=== PATIENT | female | born 1960 | race Caucasian/White ===

== ENCOUNTER 2019-04-02 12:19 | Inpatient (IN) ==
[2019-04-02] MEDS ORDERED: NS 1,000 ML IV ONE (13:27)
[2019-04-02] MEDS ORDERED: CATAPRES PO ONE (13:31)
[2019-04-02 13:55] LABS: BASO# 0.01 X1000 (0.0-0.2); BASO% 0.1 % (0.0-0.8); EOS# 0.03 X1000 (0.0-0.7); EOS% 0.3 % (0.0-10.0); HEMATOCRIT 41.1 % (37.0-47.0); HEMOGLOBIN 14.4 g/dL (12.0-16.0); IMM GRAN# 0.02 X1000 (0.0-0.04); IMM GRAN% 0.2 % (0.0-0.5); LYMPH# 1.75 X1000 (1.2-3.4); LYMPH% 17.7 % (20.5-51.1); MCH 33.3 PG (27-31); MCV 94.9 FL (81-99); MONO# 0.89 X1000 (0.11-0.59); MPV 10.4 FL (7.4-10.4); NEUT# 7.17 X1000 (1.4-6.5); NEUT% 72.7 % (42.2-75.2); PLT 236 X1000 (130-400); RBC 4.33 XMIL (4.2-5.4); WBC 9.87 X1000 (4.8-10.8)
[2019-04-02 14:14] LABS: AGAP 13; ALBUMIN 3.6 g/dL (3.5-5.0); ALKALINE PHOSPHATASE 67 U/L (32-104); BUN 9 mg/dL (8-22); CALCIUM 8.4 mg/dL (8.8-10.2); CHLORIDE 98 mmol/L (98-107); COSMO 280; CREATININE 0.5 mg/dL (0.5-0.9); ESTIMATED GFR > 60; GLUCOSE 160 mg/dL (70-104); GOT 14 U/L (10-30); GPT 6 U/L (10-36); LIPASE 20 U/L (13-60); POTASSIUM 3.5 mmol/L (3.5-5.1); SODIUM 139 mmol/L (136-145); TCO2 28 mmol/L (25-35); TOTAL PROTEIN 8.1 g/dL (6.3-8.3)
[2019-04-02 15:04] LABS: BILIRUBIN URINE NEGATIVE (NEGATIVE); BLOOD URINE NEGATIVE (NEGATIVE); GLUCOSE URINE NEGATIVE (NEGATIVE); KETONE URINE 3+(Large) mg/dL (NEGATIVE); LEUKOCYTES URINE TRACE (NEGATIVE); NITRITE URINE NEGATIVE (NEGATIVE); PROTEIN URINE 1+(30 mg/dL) mg/dL (NEGATIVE); SP GRAVITY URINE 1.005; UROBILINOGEN URINE 4 mg/dL
[2019-04-02 15:06] LABS: CLARITY CLEAR (CLEAR); COLOR DARK YELLOW; URINE SOURCE CLEAN CATCH
[2019-04-02 15:18] LABS: URINE RBC <10 /HPF (<10); URINE WBC <10 /HPF (<10)
[2019-04-02 15:19] LABS: URINE BACTERIA 1+ /HFP; URINE CAST NONE SEEN /LPF; URINE CRYSTAL NONE SEEN /HPF; URINE YEAST NONE SEEN /HPF
[2019-04-02 15:20] LABS: URINE EPITHELIAL CELLS >10 /HPF (<10)
--- NOTE | 2019-04-02 15:50 | Diag Imaging Result Doc PS360 ---
EXAM: CT ABD/PELVIS W/PO AND IV CON - 04/02/2019 HISTORY: BOWEL OBSTRUCT TECHNIQUE: CT abdomen/pelvis with oral and intravenous contrast COMPARISON: None. FINDINGS: The colon is tortuous. There is an apparent constricting lesion or stricture at the sigmoid colon which extends for a length of 4 to 5 cm, allowing for tortuosity. There is enhancement of the sigmoid colon chowdary of this location. There is irregularity of the external margins of the chowdary and there are some infiltration of surrounding fat. While this could possibly represent a benign stricture, this is somewhat suspicious for malignancy. There is diffuse distention of the colon with air and some fluid in proximal to the sigmoid lesion. There is mild loss thickening and centimeters of the distended colon. There is apparent pneumatosis at the cecum. This is nonspecific for, but can be seen with ischemia. The cecum measures approximately 6.5 cm in transverse diameter. There is no free air or abscess identified. There is no evidence of small bowel obstruction. There is no substantial abnormalities of the liver, spleen, adrenal glands, or pancreas identified. There are no calcified gallstones or pericholecystic inflammation identified. The bilateral kidneys enhance homogeneously except for a subtle small low-density area at the posterior upper left kidney, possibly representing cortical scar. There is no hydronephrosis. There are no substantial enlarged lymph nodes identified. There are atherosclerotic calcifications noted. IMPRESSION: Constricting lesion at sigmoid colon. This is suspicious for malignancy. The colon proximal to the sigmoid lesion is diffusely distended, consistent with obstruction by the lesion. There is mild wall thickening at portions of the distended colon. There is pneumatosis at the cecum. This is nonspecific for, but can be seen with ischemia. The cecum measures approximately 6.5 cm in transverse diameter. This report was discussed with Dr. Cuevas on 04/02/2019 at 3:46 PM and was readback. This exam was performed using automated exposure control, adjustment of mA or kV according to patient size, and/or use of iterative reconstruction technique. Electronically signed by Nuno Juarez 04/02/2019 3:48 PM
--- NOTE | 2019-04-02 16:34 | PROVIDER DOCUMENTATION ---
This chart was entered by Angela Draper Scribe, acting as scribe for Yuri Cuevas MD. HPI-Abdominal Pain/GI Problem - General Chief Complaint: Abdominal Pain Stated Complaint: REF URGENT CARE Time Seen by Provider: 04/02/19 13:10 Source: patient Allergies/Adverse Reactions: Patient Allergies Allergy/AdvReac Type Severity Reaction Status Date / Time erythromycin base Allergy ITCHING Verified 04/02/19 13:17 Penicillins Allergy ANAPHYLAXIS Verified 04/02/19 13:17 Sulfa (Sulfonamide Allergy ITCHING Verified 04/02/19 13:17 Antibiotics) Home Medications: Home Medication List Medication Instructions Recorded Confirmed Last Taken Type Lisinopril 20 mg PO DAILY 04/02/19 04/02/19 Unknown History - History of Present Illness-ABD Nature of Presenting Problems: Patient is a 58 year old female who presents with generalized abdominal pain, nausea, vomiting and constipation that has been present for 3 days. States seeing PCP today and was informed her xray showed a blockage. Report fever this morning. Abdominal Pain Onset Location: reports: generalized abdomen Pain Radiation: reports: no radiation Quality of Pain: reports: aching Severity in ED: reports: mild Onset/Duration: reports: 2 days ago Timing: reports: still present Activities at Onset: reports: light activity Modifying Factors: improves with: nothing Associated Symptoms: reports: constipation, fever/chills (fever), nausea, vomiting Last BM: 3 days ago Bruising or Bleeding Gums?: No Similar Symptoms Previously?: Yes Recently seen or treated by another doctor?: Yes Review of Systems - Adult - REVIEW OF SYSTEMS - ADULT Constitutional: reports: see HPI, fever. denies: chills, fatique Eyes: reports: no symptoms reported Ears, Nose, Mouth & Throat: reports: no symptoms reported Cardiovascular: reports: no symptoms reported Respiratory: reports: no symptoms reported Gastrointestinal: reports: see HPI, abdominal pain (generalized), constipation, nausea, vomiting Genitourinary: reports: no symptoms reported Musculoskeletal: reports: no symptoms reported. denies: back pain, muscle aches, neck pain Integumentary: reports: no symptoms reported Neurological: reports: no symptoms reported Psychiatric: reports: no symptoms reported Endocrine: reports: no symptoms reported Hematologic/Lymphatic: reports: no symptoms reported Allergic/Immunologic: reports: no symptoms reported All Other Systems: Reviewed and Negative Past History - Adult - PAST MEDICAL HISTORY-ADULT Review of Records: reports: Nursing Assessment Review, Medications Reviewed, Social history reviewed & non-contributory. Major Childhood Illnesses: reports: denies history Cardiovascular: reports: HTN Respiratory: reports: denies history Gastrointestinal: reports: denies history Obstetrical/Gynecological: reports: denies history Genitourinary: reports: denies history Musculoskeletal: reports: denies history Neurological: reports: denies history Endocrine/Immune: reports: denies history Other Conditions: reports: denies history - PRIOR SURGERIES/PROCEDURES Surgical/Procedure History: reports: - IMMUNIZATION STATUS Childhood Immunizations: See Nurse Assessment Flu Vaccine: See Nurse Assessment - FAMILY HISTORY Family History: reviewed, not pertinent - SOCIAL HISTORY Smoking: cigarettes, less than 1 pack/day Provider spent 3-5 mins advising pt. on dangers of tobacco.: Discussed manners to quit use, and f/u contacts for add'l counseling. Substance Use: denies Living Situation: family Physical Exam-General - PHYSICAL EXAM-ADULT Initial Vital Signs Reviewed: Yes - CONSTITUTIONAL General Appearance: alert, no apparent distress. negative: lethargic, slow to respond - RESPIRATORY Respiratory: chest non-tender, lungs clear, normal breath sounds. negative: rales, wheezing - CARDIOVASCULAR Cardiovascular: normal peripheral pulses, regular rate, rhythm. negative: bradycardia, systolic murmur - GASTROINTESTINAL (ABDOMEN) Abdominal Exam: normal bowel sounds, soft, distended, tenderness (diffuse). negative: guarding, rigid - MUSCULOSKELETAL Extremity: non-tender, normal inspection. negative: deformity - SKIN Integumentary: normal color, normal turgor, warm/dry. negative: diaphoresis, ecchymosis, jaundice - NEUROLOGIC Neurologic: grossly normal. negative: aphasia, facial droop - PSYCHIATRIC Psych/Mental Status: normal mood/affect, oriented x 3. negative: anxious Progress - PLAN OF CARE/RESULTS Progress/Plan/Lab Results: Vital Signs - 8 hr 04/02/19 12:29 Temperature 98.6 F Pulse Rate 92 H Respiratory Rate 18 Blood Pressure 181/121 O2 Sat by Pulse Oximetry 96 Orders Category Date Time Status Saline Loc NOW Care 04/02/19 13:[address] ABD/PELVIS W/PO AND IV CON [CT] Stat Exams 04/02/19 13:27 Ordered BLOOD CULTURE [BLDCUL] Stat Lab 04/02/19 13:26 Ordered CBC WITH ELECTRONIC DIFF [HEME] Stat Lab 04/02/19 13:26 Uncollected COMPREHENSIVE METABOLIC PANEL [CHEM] Stat Lab 04/02/19 13:26 Uncollected LACTATE, PLASMA [CHEM] Stat Lab 04/02/19 13:27 Uncollected LIPASE [CHEM] Stat Lab 04/02/19 13:[address] W/POSS RFLX CULT [URINALYSIS] Stat Lab 04/02/19 13:27 Uncollected 0.9% Sodium Chloride Inj [Ns] 1,000 ml Med 04/02/19 13:27 Active IV 125 mls/hr Clonidine [Catapres] Med 04/02/19 13:31 Discontinued 0.2 mg PO NOW ONE Result Diagrams: 04/02/19 13:38 04/02/19 13:38 - CT/MRI 1 CT Study: Abdomen, Pelvis Impression: See EMR Report ( EXAM: CT ABD/PELVIS W/PO AND IV CON - 04/02/2019 HISTORY: BOWEL OBSTRUCT TECHNIQUE: CT abdomen/pelvis with oral and intravenous contrast COMPARISON: None. FINDINGS: The colon is tortuous. There is an apparent constricting lesion or stricture at the sigmoid colon which extends for a length of 4 to 5 cm, allowing for tortuosity. There is enhancement of the sigmoid colon chowdary of this location. There is irregularity of the external margins of the chowdary and there are some infiltration of surrounding fat. While this could possibly represent a benign stricture, this is somewhat suspicious for malignancy. There is diffuse distention of the colon with air and some fluid in proximal to the sigmoid lesion. There is mild loss thickening and centimeters of the distended colon. There is apparent pneumatosis at the cecum. This is nonspecific for, but can be seen with ischemia. The cecum measures approximately 6.5 cm in transverse diameter. There is no free air or abscess identified. There is no evidence of small bowel obstruction. There is no substantial abnormalities of the liver, spleen, adrenal glands, or pancreas identified. There are no calcified gallstones or pericholecystic inflammation identified. The bilateral kidneys enhance homogeneously except for a subtle small low-density area at the posterior upper left kidney, possibly representing cortical scar. There is no hydronephrosis. There are no substantial enlarged lymph nodes identified. There are atherosclerotic calcifications noted. IMPRESSION: Constricting lesion at sigmoid colon. This is suspicious for malignancy. The colon proximal to the sigmoid lesion is diffusely distended, consistent with obstruction by the lesion. There is mild wall thickening at portions of the distended colon. There is pneumatosis at the cecum. This is nonspecific for, but can be seen with ischemia. The cecum measures approximately 6.5 cm in transverse diameter. This report was discussed with Dr. Cuevas on 04/02/2019 at 3:46 PM and was readback. This exam was performed using automated exposure control, adjustment of mA or kV according to patient size, and/or use of iterative reconstruction technique. Electronically signed by Nuno Juarez 04/02/2019 3:48 PM 04/02/19 1548 Interpreting Physician: Nuno Juarez MD Dictated Date/Time: 04/02/19 1529 cc: Yuri Cuevas MD; None,PCP) - CONSULTS/PCP/HOSPITALIST Notification #1 *Consult/PCP/Hospitalist*: Dr. Ortega Time Discussed: 15:53 (AT BEDSIDE, 16:12 HR.) Reason/Comments: Dr. Cuevas consulted with Dr. Ortega about patient. Consult Disposition: other (will consult on patient. admit to the hospitalist.) #2 Consult: DR FLOYD Time Discussed: 16:28 Consult Disposition: Admit (ADMIT TO [facility]/HOSPITALIST.) Departure - Departure Date of Disposition Decision: 04/02/19 Time of Disposition Decision: 16:17 DIAGNOSIS: Large bowel obstruction, Abdominal pain Disposition: ADMITTED INPATIENT 09 Certified Medical Emergency: Emergent Condition: Stable Referrals and Follow-Ups: None,PCP [Primary Care Provider] - - Critical Care Note This patient required my direct & personal management of CC.: No Attestation - Physician/ BARRON Attestation The physician spent face to face time with patient:: Yes Advanced Practice Provider documentation review:: Supervising physician onsite and consulted in the evaluation and care of this patient. The physician did have a face to face encounter with the patient. This chart was documented by the indicated scribe, (Angela Draper Scribe) and accurately reflects the services I performed and decisions made by me, Yuri Shaw MD, as attested by the provider's signature.
[2019-04-02] MEDS ORDERED: ZOFRAN IV PRN (16:40)
[2019-04-02] MEDS: PROTONIX IV SCH (16:45)
[2019-04-02] MEDS ORDERED: SODIUM CHLORIDE 0.9% INJ SCH (16:45)
[2019-04-02] MEDS: NS 1,000 ML IV SCH ×2 (17:08→23:32)
--- NOTE | 2019-04-02 17:43 | GENERAL SURGERY CONSULTATION ---
DATE: 04/02/2019 REQUESTING PHYSICIAN: The ER. REASON FOR CONSULTATION: Consult is concerning bowel obstruction. HISTORY OF PRESENT ILLNESS: A 58-year-old otherwise healthy female who is presenting with obstructive-like symptoms. She said she has had some decrease in her bowel habits last couple days. She says she has had no change in the caliber of stool. She has never had a colonoscopy before though. She went to an urgent care facility, had an x-ray that showed a bowel obstruction. She was sent to [facility]. At that point a CT scan was done that showed potential for colonic stricture. She is feeling better right now. She does not have significant abdominal pain. She has been hemodynamically stable. She is being admitted by the hospitalist service. I was asked to weigh an opinion. Again she has not had any significant change in her stool caliber recently. PAST MEDICAL HISTORY: Includes hypertension. PAST SURGICAL HISTORY: Includes . SOCIAL HISTORY: Current smoker. ALLERGIES: Erythromycin, penicillin, sulfa. HOME MEDICATIONS: Reviewed. FAMILY HISTORY: Reviewed with patient, noncontributory. PHYSICAL EXAM: Vital Signs: Patient is currently afebrile. Her vital signs stable. General: No acute distress. HEENT: Normocephalic, atraumatic. Pupils equal, round, reactive to light. Mucous membranes moist. Oropharynx benign. Neck: Supple. Trachea midline. Cardiovascular: Regular rate and rhythm. Lungs: Grossly clear. Abdomen: Soft, nontender, nondistended. Extremities: Moves all extremities. Neurologic: Grossly intact. Skin: No signs of jaundice. Vascular: All extremities perfused. LABORATORY: White blood cell count is normal, hematocrit is normal, platelet count normal. CEA is pending but remainder of labs essentially look normal. CT scan independently reviewed and radiology report reviewed. ASSESSMENT AND PLAN: A 58-year-old female with a bowel obstruction and a colonic stricture. Colonic stricture. At this time, it is concerning that is a cancer. Will get a CEA level. Given the fact she looks pretty good will try to get a barium enema to try to evaluate it better see if there actually is a stricture. If there is may consider surgical intervention but at this point given unprepped bowel she will likely need to have some kind of ostomy. Discussed this with the patient. She will be transferred to [facility]. Will update the hospitalist who are going admit her. cc: Julito Ortega MD
--- NOTE | 2019-04-02 18:18 | HISTORY AND PHYSICAL ---
PRIMARY CARE PROVIDER: Non one. CHIEF COMPLAINT: Left lower quadrant abdominal pain. HISTORY OF PRESENT ILLNESS: Ms. 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 No significant surgeries. No history of smoking or alcohol abuse. She presents with complaints of left lower quadrant abdominal pain. On Friday she felt fine. She had a normal bowel movement. On Friday morning she woke up with pretty bad left lower quadrant abdominal pain. She did not have any bowel movement that day. Went to work. Tried to go to work again on but did not feel too good. Then on Friday she still had the pain, and even threw up a little bit this morning, but denies any nausea now. The patient went to the [facility], where she had an abdominal x-ray which showed a blockage, so she was instructed to come to the Emergency Department. She presented here at the [facility] ER, where she had an abdominopelvic CT performed without any oral contrast. The impression revealed a constricting lesion at the sigmoid colon that was suspicious for malignancy. The colon proximal to the sigmoid lesion was diffusely distended, consistent with obstruction by lesion. There was mild wall thickening at the portions of the distended colon, and there is pneumatosis at the cecum. Dr. Ortega reviewed the abdominopelvic CT and felt like it was safe for her to have clear liquids but be n.p.o. after midnight. He wants to do a barium enema at 3 in the morning and possible surgery on Friday if needed. He wants to do a colon cleanse over the weekend, as this could possibly be stool related, or lesion and stool, so we will have to transfer her over to [facility] for a full workup. PAST MEDICAL HISTORY: 1. Hypertension. 2. 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 PAST SURGICAL HISTORY: section x1. SOCIAL HISTORY: Denies tobacco. She has never smoked. She says she drinks 1 beers once or twice a week. Denies any illicit drug use. Lives at home with her , which they travel a good bit. 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 FAMILY HISTORY: She was adopted, so she is unclear of any of her mother or father's medical history. She does have 1 son who has no medical conditions. ALLERGIES: She says no known drug allergies, but it looks like in her listed allergies it says penicillin, sulfa and erythromycin. HOME MEDICATIONS: Lisinopril 20 mg p.o. daily. REVIEW OF SYSTEMS: She states after drinking the liquid contrast that her abdomen actually felt better, and she denied any nausea afterwards. Otherwise, a 14-point review of systems is completed, and all are negative except for those mentioned above in the HPI. PHYSICAL EXAMINATION: VITAL SIGNS: Temperature 97.6, heart rate 71, respiratory rate 18, blood pressure 110/69, O2 saturation 96% on room air. GENERAL: Ms. Odilon Patel is a 58-year-old female. She is in no acute distress. She is able to answer questions appropriately. HEENT: Atraumatic, normocephalic. Pupils equal, round, and reactive to light. Extraocular movements intact. Mucous membranes are moist. Dentition is poor. NECK: Trachea midline. CARDIOVASCULAR: S1 and S2, regular rate and rhythm. No rubs, gallops, or murmurs. No lower extremity edema. Has +2 dorsalis and radial pulses. Negative JVD or carotid bruits. PULMONARY: Clear to auscultate. Bilateral breath sounds. No accessory muscle use of work of breathing noted. GI: Soft, nontender, nondistended. Positive bowel sounds x4. EXTREMITIES: Moves all extremities equally. Full range of motion. NEUROLOGIC: A O x3. Follows commands. Sensory is intact. SKIN: Warm, dry and intact. LABORATORY DATA: White blood cells 9000, hemoglobin 14, hematocrit 41, platelet count 236. Sodium 139, potassium 3.5, BUN 9, creatinine 0.5, glucose 160. Calcium 8.4, bilirubin 1.10. AST 14, ALT 6, albumin 3.6, lipase 20. Serum lactate 0.9. Urinalysis: 1+ protein, 3+ ketones, trace white blood cells, 1+ bacteria. Otherwise negative. IMAGING: Abdominopelvic CT: Constricting lesion at the sigmoid colon suspicious for malignancy. The colon proximal to the sigmoid lesion is diffusely distended, consistent with obstruction by lesion. There is mild wall thickening at portions of the distended colon. There is pneumatosis at the cecum which is nonspecific but could be seen with ischemia. The cecum measures approximately 6.5 cm in transverse diameter. ASSESSMENT/PLAN: 1. Possible sigmoid lesion that is suspicious for malignancy that is possibly causing obstruction, although she is really not showing signs of obstruction with vomiting or abdominal distention or firmness. She is actually soft, and after receiving her oral contrast, which is a decent amount of fluids, her abdomen was nontender. Her last bowel movement was on Friday. There is a plan for a barium enema for in the morning, ordered by Dr. Ortega, who plans on cleaning her out over the weekend, and possibly surgery on Friday if needed. She can have clear liquids today, n.p.o. after midnight. 2. Hypertension, currently not hypertensive. Will hold her lisinopril and watch her blood pressure for now. 3. Deep venous thrombosis prophylaxis with sequential compression devices. Dictated by MARVEL Early for Kvng Donovan MD Addendum: Patient seen and examined by myself. Agree with MARVEL note. It reflects my assessment and plan. Patient is being admitted to hospital for a possible sigmoid mass. She has been evaluated by general surgery who recommended transfer to [facility] for further evaluation and treatment. Will follow recommendations. cc: MARVEL Early MD MTDD
[2019-04-03 06:10] LABS: BASO# 0.01 X1000 (0.0-0.2); BASO% 0.1 % (0.0-0.8); EOS# 0.08 X1000 (0.0-0.7); EOS% 1.1 % (0.0-10.0); HEMATOCRIT 35.8 % (37.0-47.0); HEMOGLOBIN 12.3 g/dL (12.0-16.0); IMM GRAN# 0.02 X1000 (0.0-0.04); IMM GRAN% 0.3 % (0.0-0.5); LYMPH# 1.49 X1000 (1.2-3.4); LYMPH% 19.8 % (20.5-51.1); MCH 33.3 PG (27-31); MCHC 34.4 g/dL (33-37); MONO# 0.61 X1000 (0.11-0.59); MONO% 8.1 % (1.7-9.3); MPV 10.6 FL (7.4-10.4); NEUT# 5.33 X1000 (1.4-6.5); NEUT% 70.6 % (42.2-75.2); PLT 194 X1000 (130-400); RBC 3.69 XMIL (4.2-5.4); WBC 7.54 X1000 (4.8-10.8)
[2019-04-03 06:34] LABS: INR 1.01; PROTIME 14.1 Seconds (11.0-16.0)
[2019-04-03 06:35] LABS: PTT 25.2 Seconds (22.3-41.8)
[2019-04-03 06:44] LABS: AGAP 14; ALB/GLOB RATIO 0.8; ALKALINE PHOSPHATASE 55 U/L (32-104); BUN 9 mg/dL (8-22); CALCIUM 8.1 mg/dL (8.8-10.2); CHLORIDE 102 mmol/L (98-107); COSMO 281; CREATININE 0.6 mg/dL (0.5-0.9); ESTIMATED GFR > 60; GLUCOSE 145 mg/dL (70-104); GOT 11 U/L (10-30); GPT 5 U/L (10-36); MAGNESIUM 1.7 mg/dL (1.5-2.7); POTASSIUM 3.2 mmol/L (3.5-5.1); SODIUM 140 mmol/L (136-145); TCO2 24 mmol/L (25-35); TOTAL BILIRUBIN 0.85 mg/dL (0.20-1.00); TOTAL PROTEIN 6.6 g/dL (6.3-8.3)
--- NOTE | 2019-04-03 07:06 | GENERAL SURGERY PROGRESS NOTE ---
DATE: 04/03/2019 SUBJECTIVE: The patient seems to be doing okay. She has passed gas. She is feeling better overall. OBJECTIVE: Vital Signs: The patient is currently afebrile, her vital signs are stable. General: No acute distress. HEENT: Normocephalic, atraumatic. Pupils equal, round, and reactive to light. Mucous membranes moist. Oropharynx benign. Neck: Supple. Trachea midline. Cardiovascular: Regular rate and rhythm. Lungs: Grossly clear. Abdomen: Soft, less distended. No tenderness. Extremities: Moves all extremities. Neurologic: Grossly intact. Skin: No signs of jaundice. Vascular: All extremities perfused. LABORATORY: Reviewed from this morning, white blood count is normal. It should be noted that the CEA yesterday was 13. ASSESSMENT/PLAN: A 58-year-old female with potential stricture versus apple-core lesion. Colonic stricture. At this time, I think she is improving from a bowel obstruction point of view, she is at least passing gas. We will get a barium enema or water-soluble enema to see if there actually is a stricture. May determine further plans after that. cc: Julito Ortega MD
--- NOTE | 2019-04-03 09:28 | Diag Imaging Result Doc PS360 ---
EXAM: BARIUM ENEMA INDICATION: colonic stricture TECHNIQUE: Water-soluble contrast was infused per rectum under fluoroscopy and spot images were obtained. COMPARISON: CT dated 04/02/2019 FINDINGS: There is a slight narrowing involving the distal sigmoid colon suggesting the stricture that was also seen on the prior recent CT. However, it is more subtle than on CT. Contrasted passed through the mild narrowing and into the descending colon. No other focal stricture or filling defect is identified. IMPRESSION: Subtle narrowing involving the sigmoid colon that corresponds to the stricture seen on previous CT. Electronically signed by Alex Herrera 04/03/2019 9:26 AM
[2019-04-03] MEDS: NS 1,000 ML IV SCH (09:58)
[2019-04-03] MEDS ORDERED: POTASSIUM CHLORIDE 20 MEQ in NS 1,000 ML IV SCH (12:31)
[2019-04-03] MEDS: POTASSIUM CHLORIDE 20 MEQ in NS 1,000 ML IV SCH (13:28)
[2019-04-03] MEDS: FLAGYL 500 MG/NS 500 MG/100 ML IVPB IV SCH ×2 (13:53→18:53)
[2019-04-03] MEDS ORDERED: GOLYTELY PO ONE (14:00)
[2019-04-03] MEDS: CIPRO 400 MG/D5W 400 MG/200 ML IVPB IV SCH (15:18)
[2019-04-03] MEDS: PROTONIX IV SCH ×2 (15:18→17:22)
--- NOTE | 2019-04-03 16:14 | PROGRESS NOTE ---
DATE: 04/03/2019 SUBJECTIVE: This patient is feeling better. Her abdomen is nontender. She has been passing gas. Surgery Department on board. It looks like she is going to get a colonoscopy tomorrow. She has been placed on antibiotics. OBJECTIVE: Vital Signs: Temperature 99.6 degrees, pulse respiratory rate 12, blood pressure 145/69, oxygen saturation 95% on room air. HEENT: Head normocephalic, no trauma. PERRLA. Neck: Supple. No JVD. No masses. Central trachea. Chest: Clear to auscultation. No wheezing. No rales. Abdomen: Soft, slightly distended, positive bowel sounds no known no tenderness to palpation. Extremities: No edema, no clubbing, no cyanosis. Neurological: The patient is alert and oriented x3. No focal deficits. LABORATORY: WBC 7.5, hemoglobin 12.3, hematocrit 35.8, platelets 194,000. Sodium 140, potassium 3.2, chloride 102, bicarbonate 24, BUN 9, creatinine 0.6, glucose 145, calcium 8.1, AST 11, ALT 5, alkaline phosphatase 55, albumin 3. ASSESSMENT AND PLAN: 1. Constricting lesion at sigmoid colon, suspicious for malignancy. Surgery department evaluated this patient. They will go ahead and do a colonoscopy tomorrow to evaluate that area. She has been placed on ciprofloxacin and metronidazole. At this moment she is asymptomatic. No abdominal pain. We will monitor. 2. Hypertension, stable. We will watch for now. 3. Elevated glucose level. I will ask for a hemoglobin A1c in the morning. We will monitor. 4. Hypokalemia, I will replace the potassium. She is getting IV fluids. 5. Deep vein thrombosis prophylaxis with sequential compression devices. cc: Hunter Avery MD
[2019-04-03] MEDS ORDERED: ULTRAM PO ONE (18:44)
--- NOTE | 2019-04-03 19:26 | GENERAL SURGERY PROGRESS NOTE ---
DATE: 04/03/2019 Reviewed barium enema and discussed with Dr. Herrera with Radiology. There appears to be a more subtle appearance of this stricture. Given this, we will try to clean the patient out and do a colonoscopy in the morning. We will get consent and discuss with Dr. Muhammad also. cc: Julito Ortega MD
[2019-04-04] MEDS: CIPRO 400 MG/D5W 400 MG/200 ML IVPB IV SCH ×2 (04:03→15:19)
[2019-04-04] MEDS: FLAGYL 500 MG/NS 500 MG/100 ML IVPB IV SCH ×4 (04:04→22:45)
[2019-04-04 05:44] LABS: EOS# 0.04 X1000 (0.0-0.7); EOS% 0.6 % (0.0-10.0); HEMATOCRIT 37.4 % (37.0-47.0); HEMOGLOBIN 12.9 g/dL (12.0-16.0); LYMPH# 1.26 X1000 (1.2-3.4); LYMPH% 19.7 % (20.5-51.1); MCH 33.2 PG (27-31); MCHC 34.5 g/dL (33-37); MCV 96.1 FL (81-99); MONO# 0.73 X1000 (0.11-0.59); MONO% 11.4 % (1.7-9.3); MPV 10.5 FL (7.4-10.4); NEUT# 4.38 X1000 (1.4-6.5); NEUT% 68.3 % (42.2-75.2); PLT 190 X1000 (130-400); RBC 3.89 XMIL (4.2-5.4); RDW 12.8 % (11.5-14.5); WBC 6.41 X1000 (4.8-10.8)
[2019-04-04] MEDS: POTASSIUM CHLORIDE 20 MEQ in NS 1,000 ML IV SCH ×2 (05:47→17:29)
[2019-04-04 06:10] LABS: AGAP 11; BUN 8 mg/dL (8-22); CALCIUM 8.2 mg/dL (8.8-10.2); CHLORIDE 97 mmol/L (98-107); COSMO 267; CREATININE 0.6 mg/dL (0.5-0.9); ESTIMATED GFR > 60; GLUCOSE 167 mg/dL (70-104); POTASSIUM 3.8 mmol/L (3.5-5.1); SODIUM 132 mmol/L (136-145); TCO2 24 mmol/L (25-35)
[2019-04-04 06:23] LABS: HEMOGLOBIN A1C 7.5 % (4.8-6.0)
--- NOTE | 2019-04-04 06:59 | GENERAL SURGERY PROGRESS NOTE ---
DATE: 04/04/2019 SUBJECTIVE: Patient took her GoLYTELY bowel prep, but it was not super well tolerated. She has had a bowel movement. OBJECTIVE: Vital Signs: Patient is currently afebrile. Her vital signs are stable. General: No acute distress. HEENT: Normocephalic, atraumatic. Pupils equal, round, reactive to light. Mucous membranes moist. Oropharynx benign. Neck: Supple. Trachea midline. Cardiovascular: Regular rate and rhythm. Lungs: Grossly clear. Abdomen: Soft, nontender, nondistended. Extremities: Moves all extremities. Neurologic: Grossly intact. Skin: No signs of jaundice. Vascular: All extremities perfused. LABORATORY: Reviewed from this morning. ASSESSMENT AND PLAN: A 58-year-old female with bowel obstruction, possibly related colonic stricture versus mass. Bowel obstruction. At this time, clinically the bowel obstruction is improving, but there is a concern about stricture versus mass versus inflammatory changes. She is on the schedule for colonoscopy today. The risks, benefits, and alternatives of the procedure including, but not limited to, bleeding, infection, risk of perforation, risk of anesthesia discussed with the patient. We will proceed with colonoscopy today. cc: Julito Ortega MD
[2019-04-04] MEDS ORDERED: XYLOCAINE-MPF 2% ONE (09:42)
[2019-04-04] MEDS ORDERED: DIPRIVAN 1% ONE ×2 (09:43→10:04)
--- NOTE | 2019-04-04 11:26 | OPERATIVE NOTE ---
PROCEDURE DATE: 04/04/2019 PREOPERATIVE DIAGNOSES: 1. Colonic stricture versus mass versus inflammation. 2. Small-bowel obstruction. POSTOPERATIVE DIAGNOSIS: Mass in the colon at 35 cm with near-complete obstruction. PROCEDURES PERFORMED: 1. Flexible sigmoidoscopy with biopsy of mass. 2. Injection of Esther ink at the distal end. SURGEON: Julito Ortega M.D. HOSE MENDER: None. ANESTHESIA: IV MAC. FINDINGS: Friable mass that was nearly occluding the sigmoid colon. Multiple pictures were taken. Multiple biopsies were taken. We were not able to get past this area, so we injected Esther ink at the distal margin. COMPLICATIONS: None at the time of this dictation. ESTIMATED BLOOD LOSS: 5 mL. SPECIMENS REMOVED: Biopsies. BRIEF HISTORY: A 58-year-old female with obstruction. She had a barium enema that did not show the stricture as well, but it is concerning that she might have a mass. She had a slightly elevated CEA of 13. It is felt that she would benefit from a colonoscopy to try to define this area better. The risks, benefits, and alternatives were discussed and documented in the chart. All questions were answered. DESCRIPTION OF PROCEDURE: After informed consent was obtained, the patient was brought to the GI lab and placed on the GI table. IV MAC anesthesia was then performed without complication. A formal time-out was then performed, confirming the patient and procedure. All were in agreement. At that time, a digital rectal exam was performed. No masses. We inserted the colonoscope, passed it all the way to 35 cm. At this area, we found a lesion. I could not get past it after multiple attempts. It was very friable and prone to bleeding. We took multiple biopsies of this area, and injected Esther ink at the distal end. We then removed the scope slowly. The patient tolerated the procedure well. There was no other pathology noted, but again we only got to 35 cm. The patient will likely need surgical intervention. cc: Julito Ortega MD
--- NOTE | 2019-04-04 13:31 | PROGRESS NOTE ---
DATE: 04/04/2019 INTERVAL HISTORY: The patient is status post colonoscopy this morning. They were not able to advance very far due to a large obstructing mass. Biopsies were taken. The patient reports minimal abdominal cramping since then, but no other new complaints. No acute events overnight. Discussed with the patient, her new diagnosis of mild diabetes. REVIEW OF SYSTEMS: A 12-point review of systems is negative, except as per interval history. LABORATORY DATA: WBC 6.4, hemoglobin 12.9, hematocrit 37.4, platelets 190,000. Sodium 132, potassium 3.8, bicarb 24, BUN 8, creatinine 0.6, glucose 167. OBJECTIVE: Vital Signs: T-max 99.6, pulse 66, respirations 16, blood pressure 163/74, O2 saturation 97% on room air. General: No acute distress. HEENT: Normocephalic, atraumatic. Moist mucous membranes. No cervical adenopathy. Cardiovascular: Regular rate and rhythm. No murmurs, rubs, or gallops. Pulmonary: Clear to auscultation bilaterally. No wheezing, rales, or rhonchi noted. Abdomen: Soft, minimally distended. Bowel sounds positive. Nontender. Extremities: Peripheral pulses intact. No clubbing, cyanosis, or edema. Neurologic: Cranial nerves grossly intact. No focal deficits identified. Psychiatric: Normal mood and affect. Awake, alert, oriented x3. Skin: No new rashes or lesions identified. ASSESSMENT AND PLAN: 1. Sigmoid colon mass, likely malignant. Colonoscopy this morning showing a large, friable mass. Biopsies taken. Awaiting results. On Cipro and Flagyl. Given mass identified and inability to get past the mass on colonoscopy, suspect the patient will need surgical resection. Awaiting further surgery recommendations. The patient is able to eat and have bowel movements, and if surgery is going to be deferred for a while, then may be able to go home tomorrow. If patient unable to eat or have bowel movements, or if Surgery elected to perform further procedure in the immediate future, then will likely stay here. 2. Hypertension, good this morning, some moderate elevations through the day. If blood pressure remains consistently elevated, will likely start antihypertensives in the morning, but will watch for now given normal blood pressure this morning. 3. Diabetes mellitus. Patient with consistent mild hyperglycemia. A1c returned 7.5. This represents a new diagnosis of diabetes mellitus. Discussed briefly with the patient. Will likely start low-dose metformin on discharge. Monitor glucose for now. 4. Hyperkalemia, improved status post repletion. Continue to monitor. 5. Hyponatremia, mild, asymptomatic. Monitor, but no need for acute intervention at this time.
[2019-04-04] MEDS: HUMALOG SUBQ SCH ×3 (13:43→22:45)
[2019-04-04] MEDS: PROTONIX IV SCH (17:29)
[2019-04-05] MEDS: CIPRO 400 MG/D5W 400 MG/200 ML IVPB IV SCH (03:32)
[2019-04-05] MEDS: FLAGYL 500 MG/NS 500 MG/100 ML IVPB IV SCH ×2 (03:32→08:05)
[2019-04-05] MEDS: POTASSIUM CHLORIDE 20 MEQ in NS 1,000 ML IV SCH (06:54)
[2019-04-05] MEDS: HUMALOG SUBQ SCH ×2 (06:56→12:18)
--- NOTE | 2019-04-05 07:13 | GENERAL SURGERY PROGRESS NOTE ---
DATE: 04/05/2019 SUBJECTIVE: Patient is doing okay. She is tolerating liquids at the moment. OBJECTIVE: Vital Signs: The patient is currently afebrile. Her vital signs are stable. General Examination: No acute distress. HEENT: Normocephalic, atraumatic. Pupils equal, round, reactive to light. Mucous membranes moist. Oropharynx benign. Neck: Supple. Trachea midline. Cardiovascular: Regular rate and rhythm. Lungs: Grossly clear. Abdomen: Soft, nondistended. Extremities: Moves all extremities. Neurologic: Grossly intact. Skin: No signs of jaundice. Vascular: All extremities perfused. Laboratory: None this morning. ASSESSMENT AND PLAN: A 58-year-old female with likely a colonic mass in the sigmoid colon. Colonic mass in the sigmoid colon. At this time, biopsies are pending but patient seems to be doing okay. I think she has resolved from her bowel obstruction. I gave her the option of waiting here in the hospital and having my partner remove her colon or being discharged today and following up with me as an outpatient with scheduled surgery. She wants to proceed with outpatient and schedule surgery. We will try to get my office to coordinate with her today or tomorrow about scheduling her for a robotic low anterior resection. I told the patient that if she seems to deteriorate at all, then we will plan on having my partner do it while I am gone. cc: Julito Ortega MD
[2019-04-05] MEDS ORDERED: PRINIVIL PO SCH (09:00)
[2019-04-05 11:27] VITALS: BP 128/76
[2019-04-05] MEDS ORDERED: NORVASC PO SCH (11:30)
--- NOTE | 2019-04-05 22:55 | DISCHARGE SUMMARY ---
ADMISSION DATE: 04/02/2019 DISCHARGE DATE: DIAGNOSES: 1. Hypertension. 2. Sigmoid colon mass likely malignant. 3. Diabetes mellitus. 4. Hyperkalemia resolved. 5. Hyponatremia. DIAGNOSTICS: 1. CT abdomen and pelvis with p.o. and IV contrast revealed constricting lesion at the sigmoid colon suspicious for malignancy the colon proximal to the sigmoid lesions consistent with obstruction by the lesion. There is mild thickening of portions of the colon. There is pneumatosis of the cecum. Nonspecific deformity can be seen with ischemia 2. Barium enema revealed subtle narrowing involving sigmoid colon that corresponds to stricture seen her previous CT . PROCEDURES: Flexible sigmoidoscopy with biopsy of mass. MICROBIOLOGY: Blood cultures x2 revealed no growth after 48 hours. Urine culture revealed no growth. HOSPITAL COURSE: Ms Patel presented to emergency room complaining of left lower quadrant abdominal pain, she was found to have an obstruction secondary to a sigmoid lesion that was suspicious for malignancy. Dr. Adis Ortega was consulted. She underwent a flexible sigmoidoscopy with biopsy of the mass with results pending. She reports improvement in abdominal pain and appetite. Blood sugars were in the 140s to 160s, hemoglobin A1c was checked at 7.5. Electrolytes were trended and repleted as appropriate. DISCHARGE PHYSICAL EXAM: Vital signs: Blood pressure is 128/76, heart rate of 82, respirations 14, temperature 98.6 degrees oral with room air saturations 95-97%. This is a 58-year-old female who is sitting up in the bed in med/surg floor with no distress. Cardiovascular: Regular rate and rhythm. S1, S2 appreciated. She has no lower extremity edema. Peripheral pulses are palpable x4 extremities. Bilateral calves nontender to palpation. Pulmonary: Breath sounds are clear. No increased work of breathing noted, chest rise fall symmetric respiration. Chest wall is nontender to palpation. Gastrointestinal: Abdomen soft. She has bowel sounds in all 4 quadrants. Neurologic: She is alert, oriented x3. Skin is warm and dry. DISCHARGE MEDICATIONS: 1. Norvasc 5 mg p.o. daily. 2. MiraLAX 17 g p.o. daily. 3. Metformin 500 mg p.o. b.i.d. 4. Lisinopril 20 mg p.o. daily. FOLLOWUP: She has appointment Dr. Adis Ortega on 04/16/2019. She has been instructed to return to the ER or call to be seen sooner for temperature greater than 101, any chest pain, palpitations, cough, shortness of breath, any recurring abdominal pain, nausea, vomiting, diarrhea, change in stool, any black or bloody vomitus or stools or for any questions or concerns she may have. She is being discharged home in stable condition with family members. TIME SPENT: Greater than 30 minutes. Dictated by MARVEL Tijerina for Channing Calderon MD cc: MARVEL Tijerina MTD
== END 2019-04-05 13:43 | disposition home or self-care (01) | DRG 375 ==
LOC: P.ED 12:19 → SUATTDRO 12:20 → 4N 12:20
PROVIDERS: ATTEND Internal Medicine
CPT/HCPCS: 74177; 74270; 80048; 80053; 81001; 82378; 82948; 83036; 83605; 83690; 83735; 85025; 85610; 85730; 87040; 87088; 88305; 88313; 99285; A9270; C9113; J0744; J1815; J2405; J3480; J7030; Q9958; Q9967; S0030; S0164; XXXXX

== ENCOUNTER 2019-04-12 09:13 | Inpatient (IN) ==
[2019-04-12 09:40] LABS: BASO# 0.03 X1000 (0.0-0.2); BASO% 0.2 % (0.0-0.8); EOS# 0.03 X1000 (0.0-0.7); EOS% 0.2 % (0.0-10.0); HEMATOCRIT 44.8 % (37.0-47.0); HEMOGLOBIN 15.6 g/dL (12.0-16.0); IMM GRAN# 0.03 X1000 (0.0-0.04); IMM GRAN% 0.2 % (0.0-0.5); LYMPH# 1.47 X1000 (1.2-3.4); LYMPH% 9.3 % (20.5-51.1); MCH 32.8 PG (27-31); MCHC 34.8 g/dL (33-37); MCV 94.3 FL (81-99); MONO# 1.24 X1000 (0.11-0.59); MONO% 7.8 % (1.7-9.3); MPV 10.4 FL (7.4-10.4); NEUT# 13.02 X1000 (1.4-6.5); NEUT% 82.3 % (42.2-75.2); PLT 520 X1000 (130-400); RBC 4.75 XMIL (4.2-5.4); RDW 13.5 % (11.5-14.5); WBC 15.82 X1000 (4.8-10.8)
[2019-04-12 09:55] LABS: AGAP 16; ALBUMIN 3.9 g/dL (3.5-5.0); ALKALINE PHOSPHATASE 66 U/L (32-104); BUN 13 mg/dL (8-22); CALCIUM 9.1 mg/dL (8.8-10.2); CHLORIDE 93 mmol/L (98-107); COSMO 278; CREATININE 0.7 mg/dL (0.5-0.9); ESTIMATED GFR > 60; GLUCOSE 170 mg/dL (70-104); GOT 14 U/L (10-30); GPT 8 U/L (10-36); LIPASE 22 U/L (13-60); POTASSIUM 4.1 mmol/L (3.5-5.1); SODIUM 137 mmol/L (136-145); TCO2 28 mmol/L (25-35); TOTAL BILIRUBIN 0.69 mg/dL (0.20-1.00); TOTAL PROTEIN 7.8 g/dL (6.3-8.3)
[2019-04-12] MEDS ORDERED: ZOFRAN IV ONE (10:18)
[2019-04-12] MEDS ORDERED: MORPHINE IV ONE (10:18)
[2019-04-12] MEDS ORDERED: NS 1,000 ML IV ONE (10:18)
--- NOTE | 2019-04-12 10:19 | PROVIDER DOCUMENTATION ---
HPI-Abdominal Pain/GI Problem - General Chief Complaint: Abdominal Pain Stated Complaint: ABD PAIN,VOMITING Time Seen by Provider: 04/12/19 09:41 Source: patient Allergies/Adverse Reactions: Patient Allergies Allergy/AdvReac Type Severity Reaction Status Date / Time erythromycin base Allergy ITCHING Verified 04/02/19 13:17 Penicillins Allergy ANAPHYLAXIS Verified 04/02/19 13:17 Sulfa (Sulfonamide Allergy ITCHING Verified 04/02/19 13:17 Antibiotics) Home Medications: Home Medication List Medication Instructions Recorded Confirmed Last Taken Type Lisinopril 20 mg PO DAILY 04/02/19 04/02/19 Unknown History Amlodipine [Norvasc] 5 mg PO DAILY #30 tab 04/05/19 Unknown Rx Metformin [Glucophage] 500 mg PO BID CC #60 tab 04/05/19 Unknown Rx Polyethylene Glycol 3350 [Miralax] 17 gm PO DAILY #30 powd.pack 04/05/19 Unknown Rx - History of Present Illness-ABD Nature of Presenting Problems: Patient is a 58 yowf who complains of mid-abdominal pain that became worse last night and vomiting that began this morning. Recently diagnosed with colon mass, scheduled for surgery with Dr. Ortega this Friday. Last BM was Friday. She denies any other symptoms and is non-toxic in appearance. Review of Systems - Adult - REVIEW OF SYSTEMS - ADULT Constitutional: reports: no symptoms reported. denies: chills, fever Eyes: reports: no symptoms reported Ears, Nose, Mouth & Throat: reports: no symptoms reported Cardiovascular: reports: no symptoms reported Respiratory: reports: no symptoms reported Gastrointestinal: reports: see HPI, abdominal pain, constipation, nausea, vomiting. denies: diarrhea Genitourinary: reports: no symptoms reported Musculoskeletal: reports: no symptoms reported Integumentary: reports: no symptoms reported Neurological: reports: no symptoms reported Psychiatric: reports: no symptoms reported Endocrine: reports: no symptoms reported Hematologic/Lymphatic: reports: no symptoms reported Allergic/Immunologic: reports: no symptoms reported All Other Systems: Reviewed and Negative Past History - Adult - PAST MEDICAL HISTORY-ADULT Review of Records: reports: Old Records Reviewed, Nursing Assessment Review, Medications Reviewed, Social history reviewed & non-contributory. Major Childhood Illnesses: reports: denies history Cardiovascular: reports: HTN Respiratory: reports: denies history Gastrointestinal: reports: other (mass) Genitourinary: reports: denies history Musculoskeletal: reports: denies history Neurological: reports: denies history Endocrine/Immune: reports: denies history Other Conditions: reports: denies history - PRIOR SURGERIES/PROCEDURES Surgical/Procedure History: reports: - FAMILY HISTORY Family History: reviewed, not pertinent - SOCIAL HISTORY Smoking: non-smoker Physical Exam-General - PHYSICAL EXAM-ADULT Initial Vital Signs Reviewed: Yes - CONSTITUTIONAL General Appearance: alert, no apparent distress. negative: lethargic, slow to respond - EYES Eyes: PERRL/EOMI, pink conjunctivae - HEAD, EARS, NOSE, MOUTH & THROAT HENMT: normocephalic/atraumatic, moist mucous membranes - NECK Neck: non-tender, full range of motion, supple, normal inspection - RESPIRATORY Respiratory: chest non-tender, lungs clear, normal breath sounds, no pleuratic chest pain, no respiratory distress, no accessory muscle use - CARDIOVASCULAR Cardiovascular: normal peripheral pulses, regular rate, rhythm, no gallop, no murmur - GASTROINTESTINAL (ABDOMEN) Abdominal Exam: no pulsatile mass, abnormal bowel sounds (Tinkling), distended, tenderness (mid abdomen). negative: guarding - LYMPHATIC Lymphatic: no adenopathy - MUSCULOSKELETAL Back Exam: normal inspection, no CVA tenderness Extremity: normal range of motion, non-tender, normal gait, normal inspection - SKIN Integumentary: normal color, warm/dry. negative: cyanosis, diaphoresis, jaundice, mottled, pallor - NEUROLOGIC Neurologic: grossly normal, no motor/sensory deficits - PSYCHIATRIC Psych/Mental Status: normal mood/affect, normal thought content, normal thought process, oriented x 3 Progress - PLAN OF CARE/RESULTS Progress/Plan/Lab Results: Vital Signs - 8 hr 04/12/19 09:16 Temperature 97.8 F Pulse Rate 102 H Respiratory Rate 17 Blood Pressure 134/90 O2 Sat by Pulse Oximetry 95 Laboratory Results - last 24 hr 04/12/19 04/12/19 09:21 09:21 WBC 15.82 H RBC 4.75 Hgb 15.6 Hct 44.8 MCV 94.3 MCH 32.8 H MCHC 34.8 RDW Std Deviation 13.5 Plt Count 520 H MPV 10.4 Immature Gran % (Auto) 0.2 Neut % (Auto) 82.3 H Lymph % (Auto) 9.3 L [place] % (Auto) 7.8 Eos % (Auto) 0.2 Baso % (Auto) 0.2 Immature Gran # (Auto) 0.03 Neut # (Auto) 13.02 H Lymph # (Auto) 1.47 [place] # (Auto) 1.24 H Eos # (Auto) 0.03 Baso # (Auto) 0.03 Sodium 137 Potassium 4.1 Chloride 93 L Carbon Dioxide 28 Anion Gap 16 BUN 13 Creatinine 0.7 Estimated GFR/1.73 m2 > 60 BUN/Creatinine Ratio 19 Glucose 170 H Calculated Osmolality 278 Calcium 9.1 Total Bilirubin 0.69 AST 14 ALT 8 L Alkaline Phosphatase 66 Total Protein 7.8 Albumin 3.9 Globulin 3.9 Albumin/Globulin Ratio 1.0 Lipase 22 Orders Category Date Time Status NPO Diet 04/12/19 09:[address] ABD/PELVIS W/IV CONT ONLY [CT] Stat Exams 04/12/19 10:15 Ordered CBC WITH DIFF [HEME] Stat Lab 04/12/19 09:21 Completed COMPREHENSIVE METABOLIC PANEL [CHEM] Stat Lab 04/12/19 09:21 Completed LIPASE [CHEM] Stat Lab 04/12/19 09:21 Completed TROPONIN T Stat Lab 04/12/19 10:15 Ordered URINALYSIS [URINALYSIS] Stat Lab 04/12/19 09:19 Uncollected Abd Pain/OB <20 weeks Stat Oth 04/12/19 09:19 Ordered EKG [EKG] Stat Ther 04/12/19 10:15 Ordered 1210- Dr. Ortega paged. 1215- Pt denies nausea and states she has not vomited since meds. Denies pain at this time, will hold NG tube. [facility] paged. Result Diagrams: 04/12/19 09:21 04/12/19 09:21 - CT/MRI 1 CT Study: Abdomen, Pelvis (IMPRESSION: Obstruction at the level of the stricture or mass in the sigmoid colon. This exam was performed using automated exposure control, adjustment of mA or kV according to patient size, and/or use of iterative reconstruction technique. Electronically signed by Waldo Bowen 04/12/2019 12:01 PM) - CONSULTS/PCP/HOSPITALIST Notification #1 *Consult/PCP/Hospitalist*: Dr. Ortega Time Discussed: 12:13 Reason/Comments: bowel obstruction Consult Disposition: Admit ( requests that pt be admitted to [facility] and consult him. States if pt still vomiting to place NG tube.) #2 Consult: JOSEPH Tavarez [facility] Time Discussed: 12:29 Reason/Comments: admission- bowel obstruction Consult Disposition: Admit Departure - Departure Date of Disposition Decision: 04/12/19 Time of Disposition Decision: 12:00 DIAGNOSIS: Bowel obstruction Qualifiers: Intestinal obstruction type: unspecified Intestinal obstruction extent: unspecified extent Qualified Code(s): K56.609 - Unspecified intestinal obstruction, unspecified as to partial versus complete obstruction Disposition: ADMITTED INPATIENT 09 Certified Medical Emergency: Emergent Condition: Stable Referrals and Follow-Ups: None,PCP [Primary Care Provider] - - Critical Care Note This patient required my direct & personal management of CC.: No Attestation - Physician/ BARRON Attestation Patient care was provided by Advanced Practice Provider:: Yes Advanced Practice Provider:: Brenda Boyce Advanced Practice Provider documentation review:: The Mid-level provider documentation, treatment plan and medical decision making was reviewed by the physician who agrees with all treatment and medical decision making by the MLP. The physician spent face to face time with patient:: No Advanced Practice Provider documentation review:: Supervising physician onsite and consulted in the evaluation and care of this patient. The physician did not have a face to face encounter with the patient.
--- NOTE | 2019-04-12 12:04 | Diag Imaging Result Doc PS360 ---
EXAM: CT ABD/PELVIS W/IV CONT ONLY HISTORY: abd pain, constipation, n/v, hx of colon mass TECHNIQUE: CT abdomen and pelvis with intravenous contrast COMPARISON: 04/02/2019 FINDINGS: Interval development of a moderate-sized right-sided pleural effusion measuring 4.6 cm posteriorly and inferiorly in the midline. There is right lower lobe atelectasis and there could be underlying infiltrates. Minimal similar markings in the left lung base. The gallbladder is distended on the current exam. No adjacent inflammation. There is fatty infiltration of the liver. Tiny hiatal hernia. Normal spleen, pancreas, adrenal glands, and kidneys. No hydronephrosis. There is marked narrowing to the mid sigmoid colon. Markedly distended small bowel loops and colon to the stricture in the sigmoid colon. Normal uterus. The urinary bladder is only mildly distended. Trace free fluid in the pelvis. IMPRESSION: Obstruction at the level of the stricture or mass in the sigmoid colon. This exam was performed using automated exposure control, adjustment of mA or kV according to patient size, and/or use of iterative reconstruction technique. Electronically signed by Waldo Bowen 04/12/2019 12:01 PM
--- NOTE | 2019-04-12 14:03 | HISTORY AND PHYSICAL ---
PRIMARY CARE PROVIDER: None. GENERAL SURGEON: Dr. Julito Ortega. HISTORY OF PRESENT ILLNESS: Ms. Patel is a 58-year-old, female who carries a past medical history of hypertension, diabetes mellitus, a known sigmoid colon mass, previous bowel obstruction. Her pathology from that colon mass just showed reactive colonic mucosa with hyperplastic changes, thickened basement membranes, and patchy chronic inflammation. She was originally scheduled to have a robotic low anterior resection with Dr. Ortega on the . However, early this a.m., she started with right upper quadrant abdominal pain, nausea, and vomiting. Her nausea and vomiting resolved around 4 a.m. However, she continued to have a swollen abdomen and left upper quadrant pain, which was her main complaint. Her last BM was last Friday. Imaging in the ED revealed a marked narrowing to the mid sigmoid colon and obstruction at the level of the stricture. The mass in the sigmoid colon was identified. She will be admitted with a consult with Dr. Ortega. We will continue NPO status, pain management, Zofran for any nausea, and await his recommendations and continue NPO. PAST MEDICAL HISTORY: 1. Hypertension. 2. Diabetes mellitus. 3. 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 PAST SURGICAL HISTORY: section. SOCIAL HISTORY: She is . She is from [place]. They travel a lot for her 's job. 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 No tobacco or illicit drug use. Is known to drink once or twice a week with beer. FAMILY HISTORY: She was adopted so unclear on any family type history. ALLERGIES: To erythromycin, penicillin, and sulfa. HOME MEDICATIONS: Have not been verified. REVIEW OF SYSTEM: A 12-point review of systems completely negative except for those mentioned in the HPI. PHYSICAL EXAMINATION: VITAL SIGNS: Temperature is 97.5 degrees, heart rate 90, respirations 18, blood pressure 132/75, O2 is 96% on room air. GENERAL: Ms. Patel is a 58-year-old, female who is sitting up on the stretcher, in no acute distress. HEENT: Atraumatic, normocephalic. PERRL. NECK: Supple. Trachea midline. CARDIOVASCULAR: S1, S2 appreciated. No murmurs, gallops, or rubs noted. RESPIRATORY: Lung esparza clear. GASTROINTESTINAL: Soft. Tender to the left upper quadrant. She has hyperactive bowel sounds in all 4 quadrants. SKIN: Warm, dry, and intact. NEUROLOGIC: No focal deficits noted. DIAGNOSTIC DATA: Abdominal and pelvis CT, obstruction at the level of stricture, mass in the sigmoid colon. LABORATORY DATA: White count 15, hemoglobin and hematocrit 15 and 44, platelet count of 520,000. Sodium 137, potassium 4.1, BUN 13, creatinine 0.7, blood glucose is 170. Troponin less than 0.010. Lactate is 1.4. IMPRESSION AND PLAN: 1. Obstruction at the level of the stricture or mass in the sigmoid colon. We will continue with nothing per oral status. Her nausea and vomiting resolved around 4 a.m. She continues with left upper quadrant pain. We will continue with antiemetics and intravenous pain medication. Dr. Ortega is aware of the patient being admitted. She was scheduled to have surgery with him on the . We will continue her nothing per oral status. Follow his recommendations. Her biopsy from her previous visit showed reactive colonic mucosa with hyperplastic changes, thickened basement membranes, and patchy chronic inflammation. 2. Elevated white count. However, after reading her CT, it does state she had some right lower lobe atelectasis/infiltrate. However, she denied any fever, chills, cough. 3. Hypertension. 4. Diabetes mellitus. We will place her on pattern of blood sugars and sliding scale insulin. 5. Further recommendation to follow physician evaluation, laboratory and diagnostic data. Dictated by MARVEL Urena for Gilson Palmer MD cc: MD Julito Meza MD I agree with most components of history, physical , assessment and plan. A separate addendum has been dictated. MEG
[2019-04-12] MEDS: NS 1,000 ML IV ONE ×2 (15:01)
[2019-04-12] MEDS: NS 1,000 ML IV SCH (15:30)
[2019-04-12] MEDS: LEVAQUIN 750 MG/D5W 750 MG/150 ML IVPB IV SCH (15:35)
[2019-04-12 15:36] LABS: URINE SOURCE CLEAN CATCH
[2019-04-12 15:47] LABS: BILIRUBIN URINE NEGATIVE (NEGATIVE); BLOOD URINE NEGATIVE (NEGATIVE); COLOR YELLOW; GLUCOSE URINE NEGATIVE (NEGATIVE); KETONE URINE 20 mg/dL (NEGATIVE); LEUKOCYTES URINE NEGATIVE (NEGATIVE); NITRITE URINE NEGATIVE (NEGATIVE); PROTEIN URINE 30 mg/dL (NEGATIVE); TURBIDITY URINE CLEAR (CLEAR); UROBILINOGEN URINE 2 mg/dL (NORMAL)
[2019-04-12 15:49] LABS: SP GRAVITY URINE 1.015
[2019-04-12 15:50] LABS: UR EPITHELIAL CELLS <10 /HPF (<10); URINE BACTERIA NEGATIVE /HPF; URINE RBC <10 /HPF (<10); URINE WBC <10 /HPF (<10)
[2019-04-12 15:56] LABS: URINE CASTS NONE SEEN; URINE CRYSTALS NONE SEEN; URINE SMALL ROUND CELLS NONE SEEN; URINE YEAST NONE SEEN
[2019-04-12] MEDS: HUMALOG SUBQ SCH ×2 (16:08→21:11)
--- NOTE | 2019-04-12 17:19 | HISTORY AND PHYSICAL ---
ADDENDUM: This is an addendum to the history and physical dictated by nurse practitioner. I agree with most components of the history, physical, assessment and plan. In brief, Ms. Patel is a 58 year old lady with a past medical history of hypertension and dca-kpwgzdu-dpsgxobth diabetes mellitus, who was recently discharged from the hospital after flexible sigmoidoscopy and a biopsy of sigmoid stricture to home. She comes back with the same complaints of nausea, vomiting and abdominal pain that started today morning. In the emergency room she was found to have normal vitals; however, leukocytosis and CT scan of the abdomen and pelvis showing persistent sigmoid stricture with dilated loops of small and large intestines. Apparently she was scheduled to undergo robotic surgery 5 days later; however, she developed these symptoms and that is why she came to this hospital. SUBJECTIVE: At the time of my evaluation she denies any chest pain or shortness of breath. She has not had any more nausea and vomiting since she has been in the emergency room. Her abdominal pain is also getting better. She denies any urinary burning or increased frequency. She denies any undue cough as well. At the time of my evaluation she does have a few episodes of dry cough. OBJECTIVE: Vital Signs: Temperature is 98.9 degrees, pulse 77, respiratory rate 16, blood pressure 140/70, saturating 92% on room air. General: She does not appear in any acute distress. HEENT: Oral cavity is dry. Lungs: Air entry bilaterally equal. No wheeze, rhonchi, or crackles. Cardiovascular: S1 and S2 normal. No murmur, rub, or gallop. Abdomen: Soft, distended, nontender. She does have tympanic to percussion entire abdomen and hypoactive bowel sounds. Extremities: No lower extremity edema. LABORATORY DATA: Significant for leukocytosis. Normal kidney function. MICROBIOLOGY: No microbiological data. IMAGING: Abdomen and pelvis CT had suggested obstruction at the level of stricture or mass in the sigmoid colon, and a right-sided likely infiltrate with effusion which was new as compared to the CT scan 10 days ago. ASSESSMENT AND PLAN: 1. Stricture or mass at sigmoid colon levels leading to acute large and small intestinal bowel obstruction. 2. Right lower lobe infiltrate with suspected parapneumonic effusion without significant symptoms; however, she does have occasional dry cough and has had vomiting. 3. Essential hypertension. 4. Koo-hbjzodc-vojzvanlu diabetes mellitus. PLAN: I will start the patient on intravenous fluid resuscitation. We will resume her home antihypertensive medication including amlodipine. I will also start her on intravenous levofloxacin and will follow up with urinary streptococcal and Legionella antigen, and I will stop the antibiotics based on a procalcitonin level. Plan of care discussed with the patient and all of her questions have been satisfactorily answered. Her is also at bedside. cc: Gilson Palmer MD
--- NOTE | 2019-04-12 18:31 | GENERAL SURGERY CONSULTATION ---
DATE: 04/12/2019 REQUESTING PHYSICIAN: The hospitalist. REASON FOR CONSULT: Colonic stricture. HISTORY OF PRESENT ILLNESS: This is a 58-year-old female, well known to me who had been in the hospital several weeks ago for a colonic stricture. We actually had her on the schedule for Friday of this week for a laparoscopic robot-assisted low anterior resection. I did do a colonoscopy at her previous admission. There was a stricture. The biopsy did not show any signs of cancer, but she is presenting now with nausea, vomiting, abdominal distention. She had a CT scan that confirmed again this area of stricture. She is feeling better since admission. I was asked to weigh in an opinion. PAST MEDICAL HISTORY: Hypertension, diabetes mellitus, history of TB. PAST SURGICAL HISTORY: Recent colonoscopy and in the past. SOCIAL HISTORY: No tobacco or illicit drugs. FAMILY HISTORY: Reviewed with patient, noncontributory. ALLERGIES: Penicillin, sulfa, erythromycin. HOME MEDICATIONS: Reviewed. REVIEW OF SYSTEMS: A full 10 point review of systems obtained. Negative except as specified in the HPI. PHYSICAL EXAMINATION: Vital Signs: Patient is currently afebrile. Her vital signs are stable. General: No acute distress. HEENT: Normocephalic, atraumatic. Pupils equal, round, reactive to light. Mucous membranes moist. Oropharynx benign. Neck: Supple. Trachea midline. Cardiovascular: Regular rate and rhythm. Lungs: Grossly clear. Abdomen: Distended. Tympanic to percussion. No real tenderness. Extremities: Moves all extremities. Neurologic: Grossly intact. Skin: No signs of jaundice. Vascular: All extremities perfused. LABORATORY: Reviewed. White blood cell count is slightly elevated at 15, hematocrit is normal at 44, platelet count 520,000. Remainder of labs reviewed. CT scan independently reviewed and radiology report reviewed. ASSESSMENT AND PLAN: This is a 58-year-old female with colonic stricture. 1. Colonic stricture. At this time patient seems to be doing okay. We do have her tentatively on the schedule for Friday for a robotic-assisted low anterior resection. If she has any clinical change, may just consider taking her into the operating room early for resection. Would have to do this potentially just open or least laparoscopic-hand assisted. The patient is aware. Again, we will try to get her through this until Friday to have her on a scheduled day. But again, if any kind of deterioration occurs, may need to consider earlier surgical intervention especially if she does not seem to pass some of this gas that is in her abdomen at the moment. She is in no extremis right now, so again, we will try to just support her through this. 2. Multiple medical comorbidities. Currently being managed by the hospitalist service. cc: Julito Ortega MD
[2019-04-12] MEDS ORDERED: NS 1,000 ML IV SCH (21:00)
[2019-04-12] MEDS: MORPHINE IV PRN (21:11)
[2019-04-12] MEDS: ZOFRAN IV PRN (21:11)
[2019-04-13] MEDS: NS 1,000 ML IV SCH ×2 (02:16→12:16)
[2019-04-13] MEDS: ZOFRAN IV PRN (02:17)
[2019-04-13] MEDS: MORPHINE IV PRN ×3 (02:17→21:30)
[2019-04-13] MEDS: HUMALOG SUBQ SCH ×3 (06:35→16:50)
[2019-04-13 06:39] LABS: BASO# 0.02 X1000 (0.0-0.2); BASO% 0.3 % (0.0-0.8); EOS# 0.05 X1000 (0.0-0.7); EOS% 0.6 % (0.0-10.0); HEMATOCRIT 36.7 % (37.0-47.0); HEMOGLOBIN 12.2 g/dL (12.0-16.0); IMM GRAN# 0.02 X1000 (0.0-0.04); IMM GRAN% 0.3 % (0.0-0.5); LYMPH# 1.78 X1000 (1.2-3.4); LYMPH% 22.9 % (20.5-51.1); MCH 32.5 PG (27-31); MCHC 33.2 g/dL (33-37); MCV 97.9 FL (81-99); MONO# 0.66 X1000 (0.11-0.59); MONO% 8.5 % (1.7-9.3); MPV 10.4 FL (7.4-10.4); NEUT# 5.25 X1000 (1.4-6.5); NEUT% 67.4 % (42.2-75.2); PLT 376 X1000 (130-400); RBC 3.75 XMIL (4.2-5.4); RDW 13.9 % (11.5-14.5); WBC 7.78 X1000 (4.8-10.8)
[2019-04-13] MEDS: CLINIMIX E 4.25%-5% SOLUTION 1,000 ML IV SCH (06:39)
[2019-04-13 07:10] LABS: AGAP 9; BUN 11 mg/dL (8-22); CALCIUM 7.7 mg/dL (8.8-10.2); CHLORIDE 102 mmol/L (98-107); COSMO 276; CREATININE 0.6 mg/dL (0.5-0.9); ESTIMATED GFR > 60; GLUCOSE 122 mg/dL (70-104); POTASSIUM 3.6 mmol/L (3.5-5.1); SODIUM 138 mmol/L (136-145); TCO2 27 mmol/L (25-35)
--- NOTE | 2019-04-13 07:50 | Diag Imaging Result Doc PS360 ---
[facility] ABDOMEN - 04/13/2019 INDICATION: bowel obs COMPARISON: 04/12/2019 FINDINGS: Stable significant colonic obstruction, with greatest dilation of the sigmoid colon. Stable diffuse dilation of small bowel loops compatible with small bowel obstruction as well. IMPRESSION: Small bowel and colonic dilation compatible with obstruction. Stable from prior exams. Electronically signed by Brian Charles 04/13/2019 7:48 AM
[2019-04-13] MEDS: NORVASC PO SCH (08:22)
[2019-04-13] MEDS: PRINIVIL PO SCH (08:23)
[2019-04-13] MEDS ORDERED: MIRALAX PO SCH (09:00)
--- NOTE | 2019-04-13 11:12 | GENERAL SURGERY PROGRESS NOTE ---
DATE: 04/13/2019 SUBJECTIVE: Patient seems to be doing okay. Still has not passed much gas, but says she is not hurting to me. OBJECTIVE: Vital Signs: Patient is currently afebrile. Her vital signs stable. General: No acute distress. HEENT: Normocephalic, atraumatic. Pupils equal, round, reactive to light. Mucous membranes moist. Oropharynx benign. Neck: Supple, trachea midline. Cardiovascular: Regular rate and rhythm. Lungs: Grossly clear. Abdomen: Soft, distended. No real peritoneal signs. Extremities: Moves all extremities. Neurologic: Grossly intact. Skin: No signs of jaundice. Vascular: All extremities are perfused. LABORATORY DATA: None. ASSESSMENT AND PLAN: A 58-year-old female with colonic stricture. Colonic stricture. At this time, we will continue supportive care. We will likely start her on Clinimix for some nutrition. We will keep her n.p.o. for right now. We will try to continue holding her as is until Friday when we can do the surgery, but if she does change, we will consider surgical intervention. cc: Julito Ortega MD MTDD
[2019-04-13] MEDS: KLOR-CON PO SCH ×2 (12:15→17:10)
--- NOTE | 2019-04-13 12:46 | PROGRESS NOTE ---
DATE: 04/13/2019 INTERVAL HISTORY: The patient's vitals are unremarkable. Her leukocytosis has resolved. Her urine antigen and procalcitonin are pending. SUBJECTIVE: She denies any nausea or vomiting. Her abdominal pain is well controlled. She is occasionally passing gas. Denies undue abdominal pain. Has not had a bowel movement. Surgical team has started her on intravenous Clinimix. She denies any new complaints. We discussed plan of care and answered all of her questions. PHYSICAL EXAMINATION: Vital Signs: Temperature 98.6 degrees, pulse 70, respiratory rate 19, blood pressure 130/68, saturating 95% on room air. General: Does not appear in any acute distress. HEENT: Oral cavity is moist. She does have bilateral slight tonsillar enlargement without any inflammation or exudate. No pallor, cyanosis, clubbing, or icterus. Lungs: Air entry bilaterally equal. No wheeze, rhonchi, or crackles. Cardiovascular: S1, S2 normal. No murmur or gallop. Abdomen: Soft, distended, nontender. Hypoactive bowel sounds and tympanic to percussion. Extremities: No lower extremity edema. LABORATORIES: Suggestive of resolution of leukocytosis. Normal hemoglobin, hematocrit, and platelet count. Normal electrolytes. Her blood sugars are in acceptable range. MICROBIOLOGY: No data. IMAGING: Abdominal x-ray today suggests persistent colonic and small-bowel obstruction. ASSESSMENT AND PLAN: 1. Sigmoid colon stricture or mass leading to acute large and small-bowel obstruction. Continue intravenous nutrition. Continue n.p.o. status. Surgical team is planning robot-assisted surgical intervention on Friday. If the patient's clinical status worsens, then an early open or laparoscopic surgery might be planned. 2. Suspected right lower lobe pneumonia. Continue intravenous levofloxacin for a total of 5 days. 3. Essential hypertension. Currently, she is normotensive. I will continue home lisinopril and amlodipine. 4. Oqp-nqcjldu-gjlgfuylq diabetes mellitus. Continue sliding scale insulin as tolerated. DISPOSITION: The patient remains inside the hospital as we await surgical intervention on Friday. Plan of care discussed with her. All of her questions have been answered satisfactorily. cc: Gilson Palmer MD
[2019-04-13] MEDS: LEVAQUIN 750 MG/D5W 750 MG/150 ML IVPB IV SCH (14:41)
[2019-04-14] MEDS: HUMALOG SUBQ SCH ×4 (01:14→16:04)
[2019-04-14] MEDS: CLINIMIX E 4.25%-5% SOLUTION 1,000 ML IV SCH (01:18)
[2019-04-14] MEDS: MORPHINE IV PRN ×5 (01:18→22:44)
[2019-04-14] MEDS: NORVASC PO SCH (08:38)
[2019-04-14] MEDS: PRINIVIL PO SCH (08:38)
--- NOTE | 2019-04-14 09:00 | GENERAL SURGERY PROGRESS NOTE ---
DATE: 04/14/2019 SUBJECTIVE: Patient seems to be doing okay. She has not passed gas, but does not feel sick to her stomach. OBJECTIVE: Vital Signs: Patient is currently afebrile. Her vital signs are stable. General: No acute distress. HEENT: Normocephalic, atraumatic. Pupils equal, round, reactive to light. Mucous membranes moist. Oropharynx benign. Neck: Supple. Trachea midline. Cardiovascular: Regular rate and rhythm. Lungs: Grossly clear. Abdomen: Soft, but overall less distended. No peritoneal signs. Extremities: Moves all extremities. Neurologic: Grossly intact. Skin: No signs of jaundice. Vascular: All extremities perfused. LABORATORY: Reviewed from yesterday. Abdominal film reviewed from yesterday also, essentially stable. ASSESSMENT AND PLAN: A 58-year-old female with colonic stricture. Colonic stricture. At this time, will continue her current treatment. She still wants to hold off until Friday when we could do the surgery. Will try to give her an enema today to see if we can at least get some degree of decompression. Otherwise, continue current treatment. Will have to consider a gentle bowel preparation starting tomorrow. cc: Julito Ortega MD
[2019-04-14] MEDS: LEVAQUIN 750 MG/D5W 750 MG/150 ML IVPB IV SCH ×2 (14:01→14:32)
[2019-04-14] MEDS ORDERED: MIRALAX PO ONE (15:56)
--- NOTE | 2019-04-14 18:25 | PROGRESS NOTE ---
DATE: 04/14/2019 INTERVAL HISTORY: Surgical team had given her enema following which she had a bowel movement, and she feels like her abdominal pain has significantly gone down and distention has also gone down. We discussed about negative urine antigen findings, negative procalcitonin. We discussed about stopping her antibiotics today. She is denying any chest pain, shortness of breath. She never had any cough either. We discussed about possible surgery on Friday plans. VITAL SIGNS: Currently, temperature 98.2 degrees, pulse 72, respiratory rate 20, blood pressure 120/68, saturating 93% on room air. PHYSICAL EXAMINATION: General: Does not appear in any acute distress. HEENT: Oral cavity moist. She does have bilateral slight tonsillar enlargement without any inflammation or exudate. Lungs: Air entry bilaterally equal decreased air entry in right infrascapular region with mild inspiratory crackles. No wheeze or rhonchi. Cardiac: S1, S2 normal. No murmur, rub, or gallop. Abdomen: Soft, distended, nontender. Hypoactive bowel sounds and tympany to percussion. Extremities: No lower extremity edema. LABS: Suggestive of resolution. No new labs today. No microbiology data except urine antigens which are negative. Procalcitonin is less than 0.01. ASSESSMENT AND PLAN: 1. Sigmoid colon stricture or mass, leading to acute large and small bowel obstruction. Continue intravenous nutrition and clear liquid diet as per Surgery's recommendation. She already had robot assisted surgical intervention planned on Friday. Surgical team is planning bowel preparation on . If her clinical status worsens, then she may need early open or laparoscopic surgery. However, this is unlikely now. 2. Suspected right lower lobe pneumonia. The patient never had chest pain, shortness of breath, or cough; however, on presentation, the CT scan had detected right lower lobe atelectasis or infiltrate with some effusion. Considering she also had high white blood cell count, I had decided to treat her with intravenous levofloxacin, and she has received 3 days of intravenous antibiotics. Now that her procalcitonin is undetectable, my plan is to stop antibiotics today. 3. Others: Continue home lisinopril and amlodipine for essential hypertension; sliding scale insulin for noninsulin-dependent diabetes mellitus. 4. Disposition: Patient is awaiting robot assisted surgical intervention for sigmoid colon stricture. Plan of care discussed with her and all of her questions have been satisfactorily answered. cc: Gilson Palmer MD
[2019-04-15] MEDS: MORPHINE IV PRN ×5 (03:21→23:06)
[2019-04-15] MEDS: HUMALOG SUBQ SCH ×5 (04:53→23:06)
[2019-04-15] MEDS: NORVASC PO SCH (08:45)
[2019-04-15] MEDS: MIRALAX PO SCH ×2 (08:45→21:32)
[2019-04-15] MEDS: PRINIVIL PO SCH (08:45)
--- NOTE | 2019-04-15 08:59 | GENERAL SURGERY PROGRESS NOTE ---
DATE: 04/15/2019 SUBJECTIVE: The patient seemed to have some improvement with the enemas. She is tolerating at least a clear liquid diet. We have given her MiraLAX for a bowel prep. OBJECTIVE: Vital Signs: The patient is currently afebrile. Her vital signs are stable. General: No acute distress. Cardiovascular: Regular rate and rhythm. HEENT: Normocephalic, atraumatic. Pupils equal, round, reactive to light. Mucous membranes moist. Oropharynx benign. Neck: Supple. Trachea midline. Lungs: Grossly clear. Abdomen: Soft, still distended, still tympanic. No tenderness. Extremities: Moves all extremities. Neurologic: Grossly intact. Skin: No signs of jaundice. Vascular: All extremities are perfused. LABORATORY DATA: None this morning as of yet. ASSESSMENT AND PLAN: A 58-year-old female with a colonic stricture. Colonic stricture. At this time, will plan on surgical intervention tomorrow. She is getting a gentle bowel prep. We have gotten some improvement in flatus with an enema. Discussed with the patient, the risks, benefits, and alternatives, risks including, but not limited to bleeding, infection, risk of anesthesia, risk of anastomotic leak, risk of injury to other organs, risk of need for colostomy discussed. All questions were answered. Again, will proceed with surgery tomorrow. cc: Julito Ortega MD MTDD
--- NOTE | 2019-04-15 12:22 | PROGRESS NOTE ---
DATE: 04/15/2019 SUBJECTIVE: This morning, Ms. Patel refers to be doing fairly okay. Denies any new complaints. Abdomen continues to be remarkably distended. OBJECTIVE: Vital Signs: Blood pressure is 144/82, pulse is 83, respirations are 18, temperature is 98.1, the patient was saturating 94% on room air. General Examination: Ms. Patel is a 58-year- old, female. She is in bed. No distress. HEENT: Mucosa is pink and moist. Anicteric. Acyanotic. Neck: Supple. Chest: Clear to auscultation. No crepitations. No rhonchi. Cardiovascular: Regular rate and rhythm. Abdomen: Soft. It is distended. It is tympanic. Bowel sounds are remarkably reduced. There seems to be some collateral circulation on the anterior abdominal wall. [employer] DEVELOPER: The patient is awake, alert, and oriented. Laboratory Data: None for today. Current Medications: Have all been reviewed. ASSESSMENT AND PLAN: 1. Sigmoid colon stricture or mass leading to acute large and small bowel obstruction. Patient is pending exploratory laparotomy tomorrow. So far, the pathology report from the colonoscopy sampling was unremarkable for malignancy. 2. Suspected right lower lobe pneumonia. Patient is on antibiotics. The infiltrates could be as a result of atelectasis instead of pneumonia. Procalcitonin is low. 3. Hypertension, is controlled. 4. Diabetes mellitus, stable. 5. Nutritional support. Patient is currently on Clinimix. cc: Antolin Nevarez MD
[2019-04-15] MEDS: CLINIMIX E 4.25%-5% SOLUTION 1,000 ML IV SCH ×2 (18:42)
[2019-04-15] MEDS: ZOFRAN IV PRN ×2 (18:49→23:06)
[2019-04-16] MEDS: MORPHINE IV PRN ×4 (06:24→21:52)
[2019-04-16] MEDS: ZOFRAN IV PRN ×3 (06:24→21:51)
[2019-04-16 06:58] LABS: BASO# 0.01 X1000 (0.0-0.2); BASO% 0.1 % (0.0-0.8); EOS# 0.06 X1000 (0.0-0.7); EOS% 0.7 % (0.0-10.0); HEMATOCRIT 39.5 % (37.0-47.0); HEMOGLOBIN 13.4 g/dL (12.0-16.0); LYMPH# 1.55 X1000 (1.2-3.4); LYMPH% 18.8 % (20.5-51.1); MCH 32.9 PG (27-31); MCHC 33.9 g/dL (33-37); MCV 97.1 FL (81-99); MONO# 0.94 X1000 (0.11-0.59); MONO% 11.4 % (1.7-9.3); MPV 10.8 FL (7.4-10.4); PLT 380 X1000 (130-400); RBC 4.07 XMIL (4.2-5.4); RDW 13.2 % (11.5-14.5); WBC 8.26 X1000 (4.8-10.8)
[2019-04-16] MEDS: HUMALOG SUBQ SCH ×4 (07:04→21:40)
[2019-04-16 07:11] LABS: AGAP 9; ALB/GLOB RATIO 0.8; ALBUMIN 3.1 g/dL (3.5-5.0); ALKALINE PHOSPHATASE 54 U/L (32-104); BUN 10 mg/dL (8-22); CALCIUM 8.8 mg/dL (8.8-10.2); CHLORIDE 100 mmol/L (98-107); COSMO 276; CREATININE 0.5 mg/dL (0.5-0.9); ESTIMATED GFR > 60; GLUCOSE 158 mg/dL (70-104); GOT 11 U/L (10-30); GPT 5 U/L (10-36); POTASSIUM 4.1 mmol/L (3.5-5.1); SODIUM 137 mmol/L (136-145); TCO2 28 mmol/L (25-35); TOTAL BILIRUBIN 0.54 mg/dL (0.20-1.00); TOTAL PROTEIN 7.1 g/dL (6.3-8.3)
[2019-04-16] MEDS: PRINIVIL PO SCH (08:06)
[2019-04-16] MEDS: NORVASC PO SCH (08:06)
[2019-04-16] MEDS ORDERED: MARCAINE 0.25% PF/EPI 1:200,000 ONE (08:28)
[2019-04-16] MEDS ORDERED: LR 1,000 ML ONE (08:28)
[2019-04-16] MEDS ORDERED: MEFOXIN 2 GM/NS 2 GM/50 ML IVPB IV ONE (09:00)
[2019-04-16] MEDS ORDERED: MEFOXIN ONE (09:51)
[2019-04-16] MEDS ORDERED: NS ONE (09:51)
[2019-04-16] MEDS ORDERED: VERSED ONE (09:55)
[2019-04-16] MEDS ORDERED: MARCAINE 0.25% ONE (09:55)
[2019-04-16] MEDS ORDERED: SODIUM CHLORIDE 0.9% 10 ML ONE (09:55)
[2019-04-16] MEDS ORDERED: BICITRA ONE (09:55)
[2019-04-16] MEDS ORDERED: PEPCID ONE (09:56)
--- NOTE | 2019-04-16 10:26 | PROGRESS NOTE ---
DATE: 04/16/2019 SUBJECTIVE: This morning Ms. Patel refers to be doing fairly okay. She denies any nauseation or vomiting. She says she has been passing some gas, but did not have any bowel movement. OBJECTIVE: Vital signs: Blood pressure is 109/70, pulse of 81, respirations 16, temperature is 98.7 degrees. Patient was saturating 91- 94% on room air. General: Ms. Patel is a 58-year-old lady. She is in bed, does not seems to be in any distress. HEENT: Mucosa is pink and moist. Anicteric. Acyanotic. Neck: Supple. Chest: Air entry is bilaterally reduced, especially to the posterior lung in the lower esparza. Cardiovascular: Regular rate and rhythm. There is no murmurs no rubs no gallops. Abdomen: Soft, still distended. Bowel sounds are present but hypoactive. Extremities: No pedal edema. EVS TECH: Patient is awake, alert, oriented. There is no focal neurological deficit. LABORATORY DATA: WBC is 8.25, hemoglobin is 13.4, platelet count of 380,000. Chemistry is also reviewed is completely normal. CURRENT MEDICATIONS: Have all been reviewed. She is on lisinopril for blood pressure control which has been withheld. Norvasc 5 mg also has been withheld. She is on sliding scale insulin. ASSESSMENT: 1. Sigmoid colon stricture versus mass leading to acute large and small bowel obstruction. Patient is pending exploratory laparotomy today. 2. Suspected right lower lobe pneumonia. Patient is on antibiotics. Procalcitonin level is low. We think this is probably more of atelectasis than pneumonia. 3. Hypertension is currently controlled. Blood pressure medication has been withheld because of surgery. 4. Diabetes mellitus controlled. 5. Current nutritional support is on Clinimix. In general, I think Ms. Patel is fairly stable. She is currently not on any anticoagulants. She does not complain of any shortness of breath or chest pain and she does not have any history of coronary artery disease or chronic lung disease or chronic kidney or liver disease. We think she is fairly stable for surgery today. We will review her once that once surgery is completed. I have discussed the plan with Ms. Patel. Her was at the bedside at the time of the encounter. cc: Antolin Nevarez MD
--- NOTE | 2019-04-16 10:59 | GENERAL SURGERY PROGRESS NOTE ---
DATE: 04/16/2019 SUBJECTIVE: Patient seems to be doing okay. OBJECTIVE: Vital Signs: Patient is currently afebrile. Her vital signs stable. General: No acute distress. HEENT: Normocephalic, atraumatic. Pupils equal, round, reactive to light. Mucous membranes moist. Oropharynx benign. Neck: Supple. Trachea midline. Cardiovascular: Regular rate and rhythm. Lungs: Grossly clear. Abdomen: Soft, less distended but still somewhat distended. No tenderness to palpation. Extremities: Moves all extremities. Neurologic: Grossly intact. Skin: No signs of jaundice. Vascular: All extremities perfused. LABORATORY: None this morning as of yet. ASSESSMENT/PLAN: 58-year-old female with colonic stricture. 1. Colonic stricture. At this time, plan on surgical intervention today. She is aware of the risks, benefits, and alternatives we discussed with it with her yesterday. We will proceed with surgery. cc: Julito Ortega MD
[2019-04-16] MEDS ORDERED: BRIDION ONE (12:08)
[2019-04-16 12:28] LABS: URINE SOURCE CATH
[2019-04-16 12:37] LABS: BILIRUBIN URINE NEGATIVE (NEGATIVE); BLOOD URINE NEGATIVE (NEGATIVE); CLARITY CLEAR (CLEAR); COLOR YELLOW; GLUCOSE URINE NEGATIVE (NEGATIVE); KETONE URINE NEGATIVE (NEGATIVE); LEUKOCYTES URINE NEGATIVE (NEGATIVE); NITRITE URINE NEGATIVE (NEGATIVE); PH URINE 6.5; PROTEIN URINE NEGATIVE (NEGATIVE)
[2019-04-16 12:45] LABS: URINE BACTERIA NEGATIVE /HFP; URINE EPITHELIAL CELLS <10 /HPF (<10); URINE RBC <10 /HPF (<10); URINE WBC <10 /HPF (<10)
[2019-04-16] MEDS ORDERED: ALBUMIN 25% IV ONE (13:53)
--- NOTE | 2019-04-16 13:58 | OPERATIVE NOTE ---
PROCEDURE DATE: 04/16/2019 PREOPERATIVE DIAGNOSIS: Colonic mass. POSTOPERATIVE DIAGNOSIS: Colonic mass. PROCEDURE: Laparoscopic converted to open sigmoid resection. SURGEON: Julito Ortega MD BINDERY CUTTER OPERATOR: MD Dr. Brook Fiore assisted for the entirety of the case. His presence was crucial to the case. ANESTHESIA: General endotracheal. INTRAOPERATIVE FINDINGS: Very significantly dilated bowel, which made laparoscopic and robotic surgery impossible. Apple-core lesion noted in the sigmoid colon. COMPLICATIONS: None at the time of dictation. ESTIMATED BLOOD LOSS: 50 mL. SPECIMENS REMOVED: Colon. BRIEF HISTORY: This 58-year-old female with colonic obstruction. We had done a colonoscopy and it showed reactive tissue, also there was concern that it was cancer. We elected to try to do a procedure. The risks, benefits, and alternatives were discussed and documented in her chart all questions answered. DESCRIPTION OF PROCEDURE: After informed consent was obtained, patient was brought to the operative theatre, transferred to the operating table, placed in supine position. General endotracheal anesthesia was then performed without complication. A formal time-out was then performed confirming patient, date, procedure. All were in agreement. At that time, anesthesia did a TAP block without any obvious complications. We then prepped and draped the abdomen in sterile fashion. After the time-out, we attempted to place a supraumbilical trocar using Optiview technique. We inserted it and established insufflation, quickly realized there was no room in the abdomen secondary to the dilated bowel to do this case safely laparoscopically or robotically. We therefore elected to make a standard midline incision and abort the laparoscopic aspect. We made a standard midline incision. We eviscerated the bowel. We found the area where I previously tattooed on the colonoscopy in the sigmoid colon. It was almost an apple core lesion. There was not significant lymphadenopathy. We elected to do a transection and resection. We did this 15 cm on either side of the apple-core lesion. We did this with a CALIXTO stapler. We used the LigaSure to take down the mesentery and then crossed the inferior mesenteric artery. Again, there seemed to be no bulky lymphadenopathy. We removed the mass in its entirety. We then placed 2 ends of the remaining bowel together. They were amenable to a hand-sewn anastomosis. We did a side-to-end hand-sewn 2 layer anastomosis with good results. It appeared to be airtight. We then irrigated out the abdomen. There was some contamination from food particles from her obstruction, but we were able to irrigated out thoroughly. I did decompress the cecum by placing an 18-gauge angiocatheter and removing some of the air. We placed a [id number] stitch and imbricated this. We then milked the small bowel back to the NG tube back in the stomach, which was confirmed in its place. We then irrigated out the abdomen again and then closed the fascia with a running loop PDS, started at either end and then stapled the skin. The patient tolerated the procedure well, was transferred back to recovery room. cc: Julito Ortega MD
[2019-04-16] MEDS: MEFOXIN 2 GM/NS 2 GM/50 ML IVPB IV SCH ×2 (16:45→21:45)
[2019-04-16] MEDS: CLINIMIX E 4.25%-5% SOLUTION 1,000 ML IV SCH (18:59)
[2019-04-16] MEDS: PERIDEX MT SCH (21:40)
[2019-04-16] MEDS: HEPARIN SUBQ SCH (21:41)
[2019-04-17] MEDS: ZOFRAN IV PRN ×3 (01:46→19:43)
[2019-04-17] MEDS: MORPHINE IV PRN ×6 (01:47→22:41)
[2019-04-17] MEDS: HEPARIN SUBQ SCH ×3 (04:36→22:25)
[2019-04-17] MEDS: MEFOXIN 2 GM/NS 2 GM/50 ML IVPB IV SCH ×4 (04:36→22:25)
[2019-04-17 06:06] LABS: BASO# 0.01 X1000 (0.0-0.2); BASO% 0.1 % (0.0-0.8); EOS# 0.04 X1000 (0.0-0.7); EOS% 0.5 % (0.0-10.0); HEMATOCRIT 37.3 % (37.0-47.0); HEMOGLOBIN 12.5 g/dL (12.0-16.0); LYMPH% 15.2 % (20.5-51.1); MCH 32.7 PG (27-31); MCHC 33.5 g/dL (33-37); MCV 97.6 FL (81-99); MONO# 0.51 X1000 (0.11-0.59); NEUT# 6.67 X1000 (1.4-6.5); NEUT% 78.2 % (42.2-75.2); PLT 343 X1000 (130-400); RBC 3.82 XMIL (4.2-5.4); RDW 13.6 % (11.5-14.5); WBC 8.53 X1000 (4.8-10.8)
[2019-04-17] MEDS: HUMALOG SUBQ SCH ×4 (06:40→21:17)
[2019-04-17 07:04] LABS: AGAP 8; ALBUMIN 2.9 g/dL (3.5-5.0); ALKALINE PHOSPHATASE 41 U/L (32-104); BUN 9 mg/dL (8-22); CALCIUM 8.4 mg/dL (8.8-10.2); CHLORIDE 99 mmol/L (98-107); COSMO 271; CREATININE 0.7 mg/dL (0.5-0.9); ESTIMATED GFR > 60; GLUCOSE 179 mg/dL (70-104); GOT 10 U/L (10-30); GPT < 5 U/L (10-36); MAGNESIUM 1.7 mg/dL (1.5-2.7); POTASSIUM 4.3 mmol/L (3.5-5.1); SODIUM 134 mmol/L (136-145); TCO2 27 mmol/L (25-35); TOTAL BILIRUBIN 0.75 mg/dL (0.20-1.00); TOTAL PROTEIN 5.7 g/dL (6.3-8.3)
[2019-04-17] MEDS: NORVASC PO SCH (09:05)
[2019-04-17] MEDS: PERIDEX MT SCH ×2 (09:05→22:23)
[2019-04-17] MEDS: PRINIVIL PO SCH (09:05)
[2019-04-17] MEDS: CLINIMIX E 4.25%-5% SOLUTION 1,000 ML IV SCH (10:51)
--- NOTE | 2019-04-17 19:03 | PROGRESS NOTE ---
DATE: 04/17/2019 SUBJECTIVE: This morning Ms. Patel refers to be doing a whole lot better. She says she has had about 4 bowel movements since today. She underwent exploratory laparotomy yesterday, with removal of sigmoid colon mass. OBJECTIVE: Her vital signs this morning: Blood pressure is 130/71, pulse of 93, respirations 18, temperature 98.6 degrees. The patient was saturating about 91%. On general exam Ms. Patel is a 58-year-old female. She was in bed, in no distress. Mucosa is pink and moist. Anicteric. Acyanotic. Neck is supple. Chest: Good air entry bilaterally. No crepitations. No rhonchi. Cardiovascular: Regular rate and rhythm. GI: Abdomen is soft, is distended. There is a new surgical wound on the mid anterior wall, which has been covered with sterile dressing. The dressing is mildly soaked with blood. Bowel sounds were present but extremely hypoactive. Extremities: No pedal edema. Distal pulses are present. 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 LABORATORY DATA: WBC is 8.52, hemoglobin is 12.5, platelet count of 343,000. Chemistry is also reviewed, completely unremarkable. DIAGNOSTIC DATA: Review of the operative report suggests that a laparoscopic converted to open sigmoid resection was done by Dr. Ortega, assisted by Dr. Doe. It was done yesterday. The intraoperative findings suggest very significant dilated bowel. There was an apple-core lesion noted in the sigmoid colon. ASSESSMENT AND PLAN: 1. Sigmoid colon apple-core lesion, status post sigmoid colon resection with primary end-to-end anastomosis. We are going to be pending on the pathology report. 2. Right lower lobe pneumonia. The patient is on intravenous antibiotics. 3. Hypertension, controlled. 4. Diabetes mellitus, controlled. 5. Large-bowel obstruction secondary to sigmoid colon mass. The patient is status post exploratory laparotomy with sigmoid colon resection. It appears that the transit has reestablished. The patient has had 4 bowel movements, according to her. She still has an nasogastric tube in place, Will catheter in place. Will be pending Surgery evaluation today. We might be able to take the nasogastric tube out and start the patient on some clears if it is okay with Surgery. cc: Antolin Nevarez MD
[2019-04-18] MEDS ORDERED: TYLENOL PR ONE (00:36)
[2019-04-18] MEDS: ZOFRAN IV PRN ×2 (01:26→05:22)
[2019-04-18] MEDS: MORPHINE IV PRN ×8 (01:30→21:39)
[2019-04-18] MEDS ORDERED: HALL'S COUGH LOZENGE MT PRN (01:45)
--- NOTE | 2019-04-18 04:46 | GENERAL SURGERY PROGRESS NOTE ---
DATE: 04/17/2019 SUBJECTIVE: The patient is feeling much better. She is somewhat sore. No severe pain, nausea, or vomiting. She has had some bowel movements. OBJECTIVE: VITAL SIGNS: She is afebrile. Vital signs are stable. General: She is awake, alert, oriented x3. No acute distress. Cardiovascular: Regular rate and rhythm. Respiratory: Bilateral breath sounds. No work of breathing. Gastrointestinal: Soft, mildly tender. Mildly distended. Hypoactive bowel sounds. LABORATORY: CBC and complete metabolic profile reviewed and unremarkable. ASSESSMENT AND PLAN: A 58-year-old female postoperative day 1 open sigmoidectomy. She is doing well. We will keep her NG tube today and reassess for removal tomorrow. We will continue her fluids and begin mobilizing her out of bed. cc: Ahmet Doe MD
[2019-04-18] MEDS: MEFOXIN 2 GM/NS 2 GM/50 ML IVPB IV SCH ×4 (05:04→21:41)
[2019-04-18] MEDS: CLINIMIX E 4.25%-5% SOLUTION 1,000 ML IV SCH ×3 (05:07→05:12)
[2019-04-18] MEDS: HEPARIN SUBQ SCH ×3 (05:09→21:41)
[2019-04-18 06:34] LABS: HEMATOCRIT 36.4 % (37.0-47.0); MCH 33.3 PG (27-31); MCV 101.1 FL (81-99); MPV 11.1 FL (7.4-10.4); RBC 3.6 XMIL (4.2-5.4); RDW 13.5 % (11.5-14.5); WBC 9.36 X1000 (4.8-10.8)
[2019-04-18] MEDS: HUMALOG SUBQ SCH ×4 (06:44→21:41)
[2019-04-18 07:04] LABS: AGAP 10; ALBUMIN 3.1 g/dL (3.5-5.0); BUN 7 mg/dL (8-22); CALCIUM 8.9 mg/dL (8.8-10.2); CHLORIDE 98 mmol/L (98-107); COSMO 271; CREATININE 0.7 mg/dL (0.5-0.9); ESTIMATED GFR > 60; GLUCOSE 143 mg/dL (70-104); MAGNESIUM 1.9 mg/dL (1.5-2.7); PHOSPHORUS 3.1 mg/dL (2.7-4.5); POTASSIUM 3.8 mmol/L (3.5-5.1); SODIUM 135 mmol/L (136-145); TCO2 27 mmol/L (25-35)
[2019-04-18] MEDS: PERIDEX MT SCH ×2 (10:46→21:40)
[2019-04-18] MEDS: NORVASC PO SCH (10:46)
[2019-04-18] MEDS: PRINIVIL PO SCH (10:46)
--- NOTE | 2019-04-18 12:38 | PROGRESS NOTE ---
DATE: 04/18/2019 SUBJECTIVE: This morning, Ms. Patel refers to be feeling a whole lot better. Denies any new complaints. According to her, she did have a bowel movement this morning. The patient has already been seen this morning also by surgery. PHYSICAL EXAMINATION: Current Vital Signs: Blood pressure is 127/67, pulse of 83, respirations are 18, temperature is 98.9 degrees, the patient is saturating about 94% on room air. General Examination: Ms. Patel is a 58-year-old, female. She is in bed. No distress. HEENT: Mucosa is pink and moist. Anicteric. Acyanotic. Neck: Supple. Chest: Good air entry bilaterally. No crepitations. Cardiovascular: Regular rate and rhythm. There are no murmurs, no rubs, no gallops. GI: Abdomen is soft. Still minimally distended. There is a new surgical wound on the mid anterior abdominal wall which is covered with a sterile dressing. Bowel sounds are present but hypoactive. Extremities: No pedal edema. 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 LABORATORY DATA: WBC is 9.36, hemoglobin is 12.0, platelet count of 307,000. Chemistry is also reviewed. It is unremarkable. ASSESSMENT: 1. Small bowel and large bowel obstruction secondary to sigmoid mass. 2. Sigmoid colon apple core lesion, status post sigmoidectomy with primary end-to-end anastomosis. We are still pending pathology report. 3. Right lower lobe pneumonia. Patient is on intravenous antibiotics. Today is day 5. 4. Diabetes mellitus, controlled. 5. Hypertension, controlled. 6. Nutritional needs. Patient is currently on Clinimix with lipid infusion. PLAN: In general, I think Ms. Patel is doing well. NG tube is currently clamped. Hopefully, we can get it removed later on today. We will follow that up with surgery. We will also be pending the pathology report for Ms. Patel. If it turns out to be malignant, we will consult hematology/oncology. cc: Antolin Nevarez MD
--- NOTE | 2019-04-18 14:20 | GENERAL SURGERY PROGRESS NOTE ---
DATE: 04/18/2019 SUBJECTIVE: The patient is doing okay today. She wants to have her NG tube out. She has passed gas and had a bowel movement. No vomiting. OBJECTIVE: She is afebrile. Vital signs are stable. General: She is awake, alert, and oriented x3. No acute distress. Gastrointestinal: Soft, mildly distended. She has good bowel sounds. Incision is clean, dry, and intact. NG tube only 50 mL out. LABORATORY: CBC was reviewed, unremarkable. URINE OUTPUT: 1900. ASSESSMENT AND PLAN: A 58-year-old female postoperative day 2 sigmoidectomy. We will clamp her NG tube and start her on a clear liquid diet. We will remove her Will catheter and change her to maintenance fluids. cc: Ahmet Doe MD
[2019-04-18] MEDS ORDERED: CHLORASEPTIC SPRAY MT PRN (16:21)
[2019-04-19] MEDS: CLINIMIX E 4.25%-5% SOLUTION 1,000 ML IV SCH ×2 (01:05→11:08)
[2019-04-19] MEDS: MORPHINE IV PRN ×8 (01:05→23:31)
[2019-04-19] MEDS: MEFOXIN 2 GM/NS 2 GM/50 ML IVPB IV SCH ×4 (05:31→21:05)
[2019-04-19] MEDS: HEPARIN SUBQ SCH ×3 (05:31→21:07)
[2019-04-19] MEDS: HUMALOG SUBQ SCH ×4 (06:39→21:18)
[2019-04-19] MEDS: PERIDEX MT SCH ×2 (11:09→21:07)
[2019-04-19] MEDS: NORVASC PO SCH (11:09)
[2019-04-19] MEDS: PRINIVIL PO SCH (11:09)
--- NOTE | 2019-04-19 11:48 | GENERAL SURGERY PROGRESS NOTE ---
DATE: 04/19/2019 SUBJECTIVE: She is having bowel function. No fevers. No tachycardia. OBJECTIVE: Abdomen is soft. Dressing has minimal serosanguineous drainage. White count was normal yesterday. Creatinine was normal yesterday. Glucose 130 today. ASSESSMENT AND PLAN: This is a 58-year-old female status post sigmoid colectomy by Dr. Ortega. She has had return of bowel function. We will give her a soft diet. Encourage her to be out of bed and ambulating. cc: Pauly Acosta MD
--- NOTE | 2019-04-19 15:47 | PROGRESS NOTE ---
DATE: 04/19/2019 SUBJECTIVE: Patient has no major complaints. OBJECTIVE: Blood pressure 116/68, heart rate 66, respiratory rate 14, and temperature 98.3 degrees.Cardiovascular: Regular rate and rhythm. Pulmonary: Bilateral breath sounds clear to auscultation. GI: Soft, nontender, and nondistended. Bowel sounds are positive. LABORATORY DATA: White count is normal. Hemoglobin and hematocrit looks okay. Basic was normal. PROBLEM LIST: 1. Sigmoid mass status post resection waiting on resection. Waiting on treatment. Surgically, she is progressing well so we will continue to follow. 2. Right lower lobe pneumonia on antibiotics. She is currently on cefoxitin per Dr. Vila, which I guess we will continue for the time being, day 6. 3. Type 2 diabetes is controlled. 4. Severe protein-calorie malnutrition. We will continue to follow. She is on Clinimix, but we are advancing her diet. DISPOSITION: Pending her clinical status, which I think at this point is trying to figure out about if this is malignant or not, but I think if she is tolerating p.o. at surgery's discretion, she will probably be able to go home soon. cc: Nghia Reynolds MD
[2019-04-20] MEDS: MORPHINE IV PRN ×2 (01:41→04:48)
[2019-04-20] MEDS: MEFOXIN 2 GM/NS 2 GM/50 ML IVPB IV SCH (04:37)
[2019-04-20] MEDS: HEPARIN SUBQ SCH ×3 (04:38→23:58)
[2019-04-20] MEDS: CLINIMIX E 4.25%-5% SOLUTION 1,000 ML IV SCH (04:49)
[2019-04-20 06:12] LABS: BASO# 0.03 X1000 (0.0-0.2); BASO% 0.5 % (0.0-0.8); EOS# 0.18 X1000 (0.0-0.7); EOS% 3.2 % (0.0-10.0); HEMATOCRIT 34.6 % (37.0-47.0); HEMOGLOBIN 11.4 g/dL (12.0-16.0); LYMPH# 1.53 X1000 (1.2-3.4); LYMPH% 27.5 % (20.5-51.1); MCH 32.5 PG (27-31); MCHC 32.9 g/dL (33-37); MCV 98.6 FL (81-99); MONO# 0.49 X1000 (0.11-0.59); MONO% 8.8 % (1.7-9.3); MPV 10.7 FL (7.4-10.4); NEUT# 3.33 X1000 (1.4-6.5); PLT 322 X1000 (130-400); RBC 3.51 XMIL (4.2-5.4); WBC 5.56 X1000 (4.8-10.8)
[2019-04-20] MEDS: HUMALOG SUBQ SCH ×4 (06:47→23:46)
[2019-04-20 06:53] LABS: AGAP 10; BUN 8 mg/dL (8-22); CALCIUM 8.3 mg/dL (8.8-10.2); CHLORIDE 99 mmol/L (98-107); COSMO 274; CREATININE 0.7 mg/dL (0.5-0.9); ESTIMATED GFR > 60; GLUCOSE 130 mg/dL (70-104); MAGNESIUM 1.8 mg/dL (1.5-2.7); POTASSIUM 3.7 mmol/L (3.5-5.1); SODIUM 137 mmol/L (136-145); TCO2 28 mmol/L (25-35)
[2019-04-20] MEDS: NORCO-10 PO PRN ×4 (07:20→19:38)
--- NOTE | 2019-04-20 08:28 | GENERAL SURGERY PROGRESS NOTE ---
DATE: 04/20/2019 SUBJECTIVE: Patient seems to be doing well. She is tolerating a diet. She is having some return of bowel function. OBJECTIVE: Vital Signs: Patient is currently afebrile. Her vital signs are stable. General Exam: No acute distress. Cardiovascular: Regular rate and rhythm. Lungs: Grossly clear. Abdomen: Soft. Less distended than preop. Incision with dressing intact. Bowel sounds auscultated. ASSESSMENT AND PLAN: A 58-year-old female status post open sigmoid resection. 1. Postoperative state at this time. Patient seems to be doing well. We will transition her off of intravenous antibiotics, Clinimix, and intravenous pain medicine. We will put her on oral pain medicine. We will hopefully be able to see how she tolerates and has her pain controlled, with anticipated discharge here in the near future if she does well. cc: Julito Ortega MD
[2019-04-20] MEDS: PRINIVIL PO SCH (11:07)
[2019-04-20] MEDS: PERIDEX MT SCH ×2 (11:07→23:59)
[2019-04-20] MEDS: NORVASC PO SCH (11:07)
--- NOTE | 2019-04-20 14:43 | PROGRESS NOTE ---
DATE: 04/20/2019 SUBJECTIVE: This morning, Ms. Patel refers to be feeling a whole lot better. She is having adequate bowel movement and she is tolerating her diet. Ms Patel says she has been evaluated early on by Surgery and there is a plan for her discharge tomorrow. OBJECTIVE: Vital signs: Blood pressure is 110/70, pulse of 70, respirations 16, temperature is 98.3 degrees. General: Ms. Patel is a 58-year-old female. She is in bed, not seemingly distressed. HEENT: Mucosa is pink and moist. Anicteric. Acyanotic. Neck: Supple. Chest: Good air entry bilateral. There are no crepitations, no rhonchi. Cardiovascular: Regular rate and rhythm. Abdomen: Soft, distended. Bowel sounds are present. There is a new surgical wound on the anterior abdominal wall which has sterile dressing over it. Central nervous system: Patient is awake, alert, and oriented. There is no focal neurological deficit. LABORATORY DATA: CBC is unremarkable. Chemistry is also reviewed, completely normal. Pathology report is still pending. However, a preliminary report seems to suggest moderate adenocarcinoma with some with a lymph node that was also involved. The margins of the surgical specimen were clean. ASSESSMENT: 1. Bowel obstruction secondary to sigmoid mass. Patient is status post sigmoidectomy with primary end-to-end anastomosis. Pathology report seems to suggest moderate adenocarcinoma with positive 1 lymph node. We are still pending the official report on this. Patient has been notified about the preliminary report, and I have also consulted Heme-Onc. 2. Right lower lobe pneumonia, improved. 3. Diabetes mellitus, controlled. 4. Hypertension, controlled. PLAN: In general, I think Ms. Patel is doing a lot better. She is tolerating her GI soft diet. There is a plan for her discharge tomorrow. The preliminary report from her pathology reveals a moderate adenocarcinoma. I have consulted Heme-Onc to evaluate her before she is discharged tomorrow. Ms Patel has completed a 7-day course of antibiotic therapy. cc: Antolin Nevarez MD
[2019-04-21] MEDS: NORCO-10 PO PRN ×4 (04:11→15:12)
[2019-04-21] MEDS: HUMALOG SUBQ SCH ×2 (06:48→11:00)
--- NOTE | 2019-04-21 07:42 | GENERAL SURGERY PROGRESS NOTE ---
DATE: 04/21/2019 SUBJECTIVE: The patient seems to be doing really well. She is tolerating a diet. Pain is controlled. She is having bowel movements. OBJECTIVE: Vital Signs: The patient is currently afebrile. Her vital signs are stable. General: No acute distress. Cardiovascular: Regular rate and rhythm. Lungs: Grossly clear. Abdomen: Soft, appropriately tender. Dressing in place. ASSESSMENT AND PLAN: A 58-year-old female status post open sigmoid resection. Postoperative state. At this time, the patient is doing well. I think she can be discharged home today. She needs to follow up with me next week. cc: Julito Ortega MD
[2019-04-21] MEDS: HEPARIN SUBQ SCH ×2 (08:22→15:12)
[2019-04-21] MEDS: PRINIVIL PO SCH (08:22)
[2019-04-21] MEDS: PERIDEX MT SCH (08:22)
[2019-04-21] MEDS: NORVASC PO SCH (08:23)
[2019-04-21 12:09] VITALS: BP 99/55
--- NOTE | 2019-04-21 15:45 | DISCHARGE SUMMARY ---
ADMISSION DATE: 04/12/2019 DISCHARGE DATE: 04/21/2019 ADMISSION DIAGNOSES: 1. Stricture at the sigmoid colon leading to acute large and small intestinal bowel obstruction. 2. Right lower lobe infiltrate with suspected parapneumonic effusion without significant symptoms. 3. Hypertension. 4. Noninsulin dependent diabetes mellitus. DISCHARGE DIAGNOSES: 1. Adenocarcinoma of sigmoid colon leading to acute large and small intestinal bowel obstruction. 2. Right lower lobe pneumonia 3. Hypertension. 4. Noninsulin dependent diabetes mellitus. 5. Invasive adenocarcinoma of the sigmoid colon ([id number]). Patient to follow up with Dr Pollock CONSULTATIONS: Dr. Julito Ortega with Surgery and Dr. Pollock. DIAGNOSTIC PROCEDURES AND FINDINGS: Abdomen and pelvis CT 04/12/2019: Obstruction at the level of the stricture or mass in the sigmoid colon. Abdomen x-ray 04/13/2019: Small bowel or colonic dilatation compatible with obstruction. OPERATIVE PROCEDURES: Laparoscopic converted to open sigmoid resection by Dr. Julito Ortega on 04/16/2019. HOSPITAL COURSE: Ms. Patel is a 58-year-old female with a known history of colonic stricture diagnosed on her last admission. She was actually set up with Dr. Ortega to do surgery a few days after her date of admission this time. She was to have a resection, however, she had increasing abdominal pain, nausea, and vomiting that felt like her previous admission. When she got back to the [facility] labs were done and she was noted to have leukocytosis and CT scan showed a persistent sigmoid stricture with dilated loops of small and large intestine. She was admitted and started on IV fluids. The abdomen and pelvis CAT scan did show a parapneumonic effusion in the right lower lobe. She was started on antibiotics. We consulted Dr. Ortega who proceeded with open sigmoid resection on 04/16/2019. The surgery was tolerated well without complication. That tissue was sent off for pathology which actually was positive for invasive adenocarcinoma extending into the pericolonic adipose tissue and lymph nodes were positive for metastatic carcinoma. We did consult Dr. Salome Pollock who will see the patient in follow up. Her wounds have healed nicely. Her vital signs are stable. Her laboratory data yesterday was unremarkable. She is now stable for discharge home. DISCHARGE MEDICATIONS: 1. Lisinopril 20 mg daily. 2. Polyethylene glycol 17 grams daily. 3. Norvasc 5 mg daily. 4. Metformin 500 mg p.o. b.i.d. 5. [place] 10 mg as needed for pain. DISCHARGE DIET: Heart healthy diabetic. DISCHARGE ACTIVITY: Resume activity as tolerated. DISPOSITION AND OTHER DISCHARGE INSTRUCTIONS: The patient is discharged home to self-care. She is to follow up with Dr. Pollock as directed, Dr. Ortega as directed, and her PCP within the next 1 to 2 weeks or sooner if needed. She is to return to the [facility] or call 911 for any worsening complaints or concerns. All questions were answered. DISCHARGE TIME: Greater than 35 minutes. Dictated by MARVEL Fields for Antolin Nevarez MD cc: MARVEL Fields MD I have seen and examined Ms Patel today. at the bedside. She feels better and no complains. She has been seen today by surgery and cleared for discharge. Ms Blount is clinically stable for discharge today. I have reconciled her home medications. All discharge instructions and follow up recommendations have been discussed with her and . I agree with the above discharge summary. 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
== END 2019-04-21 15:45 | disposition home or self-care (01) | DRG 329 ==
LOC: ED 09:13 → 4N 09:14 → SUATTDRO 09:14 → 4N 04-16 13:46
PROVIDERS: ATTEND Internal Medicine
CPT/HCPCS: 74000; 74018; 74177; 80048; 80053; 80069; 81001; 82948; 83605; 83690; 83735; 84100; 84145; 84484; 85025; 85027; 87449; 87899; 88307; 88313; 93005; 94760; 94761; 96374; 96375; 99285; A9270; J0694; J1644; J1815; J1956; J2250; J2270; J2405; J7030; J7120; P9047; Q9967; S0020; S0028; XXXXX